=== PATIENT | male | born 1970 | race Caucasian/White ===

== ENCOUNTER → 2017-09-10 | Outpatient (CLI) | payer BC ==
[~2017-09-10] MED LIST: INDO25CA14 PO; LPR25 PO; PANT1TAB4 PO; THIA100T27 PO
== END | disposition home or self-care (01) ==
LOC: C.RDSM 10:55
PROVIDERS: ATTEND Family Medicine Sports Medicine
DX: M54.5 Low back pain (principal)

== ENCOUNTER 2023-12-23 11:58 | Inpatient (IN) ==
[2023-12-23 12:43] LABS: Basophils # (auto) 0.03 K/uL (0.00-0.20); Basophils % (auto) 0.2 %; Eosinophils # (auto) 0.01 K/uL (0.00-0.50); Eosinophils % (auto) 0.1 %; Hematocrit (blood only) 50.9 % (42.0-52.0); Hemoglobin 18.5 g/dl (14.0-18.0); Immature Granulocytes # (auto) 0.07 K/uL (0.01-0.20); Immature Granulocytes % (auto) 0.5 %; Lymphocytes % (auto) 4.7 %; Mean Corpuscular Hemoglobin 32.5 pg (25.0-34.0); Mean Corpuscular Hgb Conc 36.3 g/dL (32.0-36.0); Mean Corpuscular Volume 89.5 fL (80.0-100.0); Mean Platelet Volume 9.1 fL (9.4-12.4); Monocytes # (auto) 0.79 K/uL (0.11-0.59); Monocytes % (auto) 6.2 %; Neutrophils # (auto) 11.25 K/uL (1.40-6.50); Neutrophils % (auto) 88.3 %; Platelet Count 425 K/uL (130-400); RDW Coefficient of Variation 11.5 % (11.5-14.5); RDW Standard Deviation 37.3 fL (36.4-46.3); Red Blood Count 5.69 M/uL (4.70-6.10); White Blood Count 12.75 K/ul (4.8-10.8)
[2023-12-23 13:01] LABS: Anion Gap 8 (3-11); BUN Creatinine Ratio 12.9 (10-20); Blood Urea Nitrogen 12 mg/dl (6-23); Calcium 9.7 mg/dl (8.6-10.3); Carbon Dioxide 30 mmol/L (21-32); Chloride 96 mmol/L (98-107); Glucose 154 mg/dl (70-99(Fasting)); Potassium 4.5 mmol/L (3.5-5.1); Sodium 134 mmol/L (136-145)
[2023-12-23 13:04] LABS: Alanine Aminotransferase 10 U/L (7-52); Albumin Globulin Ratio 1.2 (0.9-2); Albumin Level 4.1 gm/dl (3.4-5.0); Alkaline Phosphatase 91 U/L (34-104); Aspartate Aminotransferase 13 U/L (13-39); Globulin 3.5 gm/dl (2.5-4.0); Total Protein 7.6 gm/dl (6.0-8.3)
[2023-12-23 13:24] LABS: Lipase 1126 U/L (11-82)
[2023-12-23] MEDS: FAMOTIDINE 20MG IV PUSH 20 MG/5 ML SYR IV STA (13:42)
[2023-12-23] MEDS: ONDANSETRON INJ 2 MG/ML 2 ML VIAL IV STA (13:42)
[2023-12-23] MEDS: MoRPHine SULFATE 10 MG/ML CARP/VIAL IV STA (13:42)
[2023-12-23] MEDS: SODIUM CHLORIDE 0.9% 1,000 ML IV ONE (13:43)
[2023-12-23] MEDS: OPTIRAY 320 100ml IV ONE (13:51)
[2023-12-23 14:04] LABS: Prothrombin Time 11.1 Seconds (9.0-12.0)
--- NOTE | 2023-12-23 14:05 | History & Physical Report ---
Date of Service December 23, 2023 Assessment & Plan (1) Pancreatitis: Plan: History of chronic pancreatitis secondary to alcohol use - Recent ultrasound 10/2023 showed multiple stones within the gallbladder, fatty liver disease, severe chronic pancreatitis - CT AP on admission showed acute on chronic pancreatitis, large nonobstructing calculi within major and accessory pancreatic ducts (follow up 3 months), cholelithiasis without ductal dilation - triglyceride level 12/16 = 74 - lipase 1126 - leukocytosis (WBC 12.75) with neutrophil predominance - lactate pending - NPO - may have water - IVF bolus NSS in ER -> transition to gentle resuscitation with LR - IV tylenol prn, IV morphine prn, zofran prn (2) Alcohol abuse: Plan: previous history of alcohol use, quit for about 4 weeks, resumed a couple weeks ago (~12-15? shots of liquor a day) last drink evening of 11/18 - Alcohol level negative on admission - IV thiamine 500 mg in the ER -> transition to 100 mg IV daily - 1G IV folate on admission - AWSS @ risk protocol - folate, thiamine, B12 with AM labs (3) Mesenteric venous thrombosis: Plan: no history of previous bleeding or VTE - CT AP on admission showed moderately narrowed SMV, favors partial thrombus - Heparinized at time of admission - consult to vascular (4) Hypertension: Plan: Elevated on admission (217/122) - Given 1 L bolus of fluids in ER, likely contributing to hypertension - continue home medications (5) Gout: Plan: recent flare-up 12/17 - prescribed prednisone taper - improved - continue final 2 days of prednisone taper, 10 mg p.o. (6) Cholelithiasis: Plan: - seen on recent ultrasound 10/22/2023 without obstruction - CT AP on admission showed cholelithiasis without ductal dilation - LFTs WNL on admission - Continue to trend LFTs daily (7) Fatty liver: Plan: seen on recent ultrasound 10/2023 - CMP showed no abnormalities with liver enzymes Plan Chronic stable diagnoses: HLD - continue statin Prediabetes - A1c 6.1%, no medical management at this time VTE ppx: heparinized Diet: NPO - may have water Code status: Full Dispo: pcu/tele Admission and Anticipated Discharge Date Admission Date: 12/23/23 History of Present Illness Chief Complaint: Abd pain Primary Care Provider: SYLVIA Urbina Patient is a 53-year-old male with past medical history of chronic pancreatitis, alcohol use, gout (recent steroid prescribed 12/17), hypertension, lipidemia, fatty liver disease, and prediabetes. He presents today due to abdominal pain. patient stated that his abdominal pain began Sunday in the evening and progressively has gotten worse since then, it is intermittent and 10 out of 10 at its worst. He has had episodes of this in the past and did not seek medical treatment Because it went away after few hours. He was hospitalized in 2016 for acute pancreatitis, he stated that was more severe than it currently is. he has been unable to eat much for the past few days due to pain, liquid diet at home. He also has a history of alcohol abuse. A few months ago he decided to quit, he went 4 weeks without any drinks. He did not have any signs or symptoms of withdrawal or seizures during this break. He slowly started to drink 1-2 drinks a day and now is back to having multiple drinks every evening with 3-4 shots in each drink. He is unable to give a quantity of exactly how much she is drinking today. He quit drinking Sunday due to the pain, his last drink was evening. He currently denies symptoms of withdrawal. No recent seizures. He endorses abdominal pain, currently well-controlled given patient just had morphine. Patient with hiccups on exam. Patient denies fever, chills, headache, dizziness, lightheadedness, vision changes, rhinorrhea, sore throat, cough, sputum production, dyspnea, dyspnea on exertion, chest pain, nausea, vomiting, diarrhea, constipation, dysuria, hematuria, edema, numbness, tingling. Patient's significant other updated at bedside. The patient was discussed with Dr. Moore at the time of the admission/consult. Allergies Allergy/AdvReac Type Severity Reaction Status Date / Time hydrocodone Allergy Verified 12/18/23 15:29 Home Medications Medication Instructions Recorded Confirmed Type thiamine HCl (vitamin B1) 100 mg 100 mg PO DAILY 12/09/18 12/23/23 History tablet aspirin 81 mg tablet,delayed 81 mg PO DAILY #30 tabs 10/26/21 12/23/23 Rx release sildenafil 50 mg tablet 50 mg PO DAILY PRN sexual activity 09/18/24 11/10/24 Rx #20 tabs irbesartan 300 mg tablet 300 mg PO DAILY #90 tabs 12/05/23 12/23/23 Rx metoprolol succinate 50 mg 50 mg PO DAILY #90 tabs 12/05/23 12/23/23 Rx tablet,extended release 24 hr prednisone 10 mg tablet See Rx Instructions PO DAILY #20 12/18/23 12/23/23 Rx tabs potassium chloride 20 mEq 20 meq PO UD 12/23/23 12/23/23 History tablet,extended release(part/cryst) Past Med/Surg History Problem List Mesenteric venous thrombosis Alcohol abuse Pancreatitis (2016) Cholelithiasis Fatty liver Chronic pancreatitis Prediabetes Gout Erectile dysfunction Anxiety Left ventricular hypertrophy Hyperlipidemia Hypertension Medical History Abnormal EKG Hypertensive urgency Olecranon bursitis Contusion of bone Pain of both elbows Surgical History History of arthroscopy of knee Family History Denies family history of Ovarian cancer Prostate cancer Breast cancer Lung cancer Colorectal cancer Social History Smoking Status: Never smoker Tobacco Type: Smokeless Tobacco (Dip or Chew) Do You Dip or Chew Tobacco: Yes; Hx Alcohol Use: No (NO longer drinking Alcohol (previous use: 1/2 handle hard liquor per day)) Hx Substance Use: No Preferred Language: [place] Communication Ability: Effective Visual Impairment: No Limitations Hearing Ability: Hard of Hearing Erp Pm Required: No Beliefs That Will Affect Care: None marital status: Single Current Living Situation: Alone current occupational status: employed current occupation: forester How many Children do You have: 3 How many Children do You have Comment: 2 daughters, 1 son Feels Safe at Home: Yes Childhood Exposure to Second-Hand Smoke: Yes Diet: regular caffeine: Yes (coffee) during the past year weight has: remained stable Dental Care, Regularly: No Physical Activity Frequency: Daily Physical Activity Frequency Comment: walking Seatbelt Use: always Sunscreen Use: Yes Review of Systems Review of Systems: see HPI Physical Exam Physical Exam: The patient is awake, alert and oriented 3, well developed and well nourished, normocephalic and atraumatic, in no acute distress. Non-toxic appearing. HEENT- EOMI, mucous membranes dry. Hearing grossly intact. Heart-normal S1 and S2. No murmurs, rubs or gallops. Lungs-clear bilaterally, no respiratory distress, no accessory muscle use. Abdomen-normal bowel sounds and soft. No ascites noted. Tenderness to palpation of RUQ and LUQ, no cullens or bauer's sign. Extremities- no clubbing, cyanosis, or edema. Rheumatologic-normal range of motion. Psychiatric-normal affect. Results & Data Results & Data Vital Signs (Past 12 Hours) Vital Signs Temp Pulse Pulse Resp BP BP Pulse Ox 12/23/23 14:01 110 H 16 217/122 H 95 12/23/23 12:06 36.4 C L 118 H 20 199/130 H 97 O2 Del Method 12/23/23 14:01 Room Air 12/23/23 12:06 Room Air Code Status & VTE Plan Code Status full VTE Prophylaxis Plan VTE Prophylaxis will be ordered: Yes Supervising Physician Co-Signing Physician Notes Patient seen and examined, chart reviewed, case discussed with Pinky Gutierrez PA-C and I agree with the assessment and plan as above except as otherwise noted Labs and images reviewed Patient is a 53-year-old male with a past medical history of hypertension, gout, alcohol use, fatty liver disease on EUS 10/2023, chronic pancreatitis with chronic calcific pancreatitis noted on EUS 10/2023 who presents with abdominal pain and was found to have recurrent acute on chronic pancreatitis in the setting of alcohol use. Acute on chronic pancreatitis CTA&P with moderate stranding and fluid adjacent to the uncinate process and pancreatic head extending into the mesentery. No fluid collection. Moderately narrowed superior mesenteric vein new from prior favoring partial thrombosis with patent portal veins Pancreatitis likely due to resuming alcohol in the last few weeks. Recommend remaining abstinent from alcohol LR x 1 due to poor p.o. intake and abdominal pain, will push orals as tolerated and reassess for need for IV fluids following each liter in setting of critical IV fluid shortage. Patient does have calcified gallstone within the gallbladder but does not show biliary ductal dilation or transaminitis suggestive of CBD stone as the cause of his pancreatitis. LFTs trended daily. Triglycerides were recently checked and within normal ranges 74 History of alcohol abuse - Abstinant from alcohol a for a few months, but started drinking again a few weeks ago. Previously with 10-12 beers Per day use and history of recurrent pancreatitis with hypertension - Currently 3 drinks per night with a few shots per drink. No ETOH since evening. No tremors, shakes, or sweating. No history of seizure. - E[facility] 10[facility]20[facility]: Normal esophagus. Normal stomach. Normal duodenum. Patient is around 3 days without alcohol and without withdrawal symptoms on admission. He reports that he has not had his usual alcohol withdrawal before and feels confident he will not have any withdrawal symptoms or need medicine; will place on RANDALL S protocol but defer Librium/gabapentin/phenobarb/Valium on admission. If he begins to show signs of withdrawal would recommend addition of Valium 5-10 mg every hour up to 3 doses for frontloaded protocol at that time. Resume thiamine/folic acid when able to tolerate p.o. Will give 1 dose of thiamine IV Mesenteric vein thrombosis Moderately narrowed superior mesenteric vein indicative of partial thrombosis with patent portal veins on CT Patient does not appear peritoneal, does have upper right and left quadrant pain likely from his concurrent pancreatitis but without rebound/involuntary guarding at time of admission Heparin GTT ordered and continued No evidence of bowel infarction on CT. Lactate ordered. surgery not indicated at time of admitting assessment Reviewed risks of anticoagulation extensively with patient at bedside, he is agreeable to heparin and likely DOAC on discharge. He denies history of bleeding, stomach ulcers, hematochezia/melena. He does report he had some dark stools many weeks ago but had no stomach ulcers on his endoscopy and has not had GI bleeding. Also reviewed the risk of alcohol intake while on a blood thinner both from risk of bleeding and from the anticoagulation itself and from the potential for alcohol to both worsen this and increase his likelihood of falling. Discussed rare but catastrophic nature of intracranial hemorrhage, and strongly recommended patient remain abstinent from alcohol. Agree with above PG Care Time/CCT Total # of Minutes Spent Total Time Spent with Patient: Total time spent is greater than 50% in coordination of care (as documented) at patient's floor/unit and/or counseling patient: Coding Level of Care Code 63017 INT INP/OBS CARE 3/75MIN Diagnoses Pancreatitis K85.90 Alcohol abuse F10.10 Mesenteric venous thrombosis K55.069 Hypertension I10 Gout M10.9 Cholelithiasis K80.20 Fatty liver K76.0
--- NOTE | 2023-12-23 14:14 | CT Scan Report ---
CT OF THE ABDOMEN AND PELVIS WITH CONTRAST CLINICAL HISTORY: etoh pancreatitis, abd pain COMPARISON STUDY: CT of the abdomen and pelvis September 14, 2023. TECHNIQUE: Following IV administration of 93 mL of Optiray, axial images of the abdomen and pelvis we re obtained from the lung bases to the proximal femurs. Images were reviewed in the axial, sagittal, and coronal planes. IV contrast was administered without complication. Automated exposure control wa s utilized for the study. A dose lowering technique was utilized adhering to the principles of ALARA . CT DOSE: 1548.51 mGy.cm FINDINGS: Lung bases are unremarkable. No pneumatosis, free air or portal venous gas is present. Ther e is a small calcified gallstone within the gallbladder. The gallbladder is not distended. There is n o pericholecystic infiltration. There is no biliary ductal dilatation. The spleen, adrenal glands and kidneys are unremarkable. Is no hydronephrosis. Pancreatic parenchymal calcifications are again note d with glandular atrophy. Pancreatic ductal dilatation is unchanged since CT of September 14, 2023. The m ain pancreatic duct measures 1.2 cm. Note is again made of large calculi within the main and accessor y pancreatic ducts, just proximal to the major and minor papilla. These calculi measure up to 2 cm. M oderate stranding and fluid adjacent to the uncinate process and pancreatic head extends into the mes entery. No well-defined peripancreatic fluid collection is present. There is no evidence for gland ne crosis. Of note, the superior mesenteric vein is attenuated, new since prior exam. The main, left and right portal veins are patent. Splenic vein is patent. There is no evidence for a bowel obstruction. A small amount of fluid within the pelvis is present. IMPRESSION: 1. Findings consistent with acute on chronic pancreatitis. Moderate stranding and fluid adjacent to t he uncinate process and pancreatic head extending into the mesentery. No peripancreatic fluid collect ion. 2. No change in pancreatic ductal dilatation likely related to large calculi within the major and acc essory pancreatic ducts. No underlying mass identified however a follow-up CT in 3 months is recommen ded. 3. Moderately narrowed superior mesenteric vein, a new finding since prior exam. This favors partial thrombosis. Patent portal veins. 4. Cholelithiasis. 5. No biliary ductal dilatation. ACT 112: Negative or not required by law. Electronically signed by: Josse Russell M.D. 12/23/2023 2:12 PM
--- NOTE | 2023-12-23 14:23 | Emergency Department Note ---
Impression & Plan Pancreatitis, Alcohol abuse, Chronic pancreatitis, Mesenteric venous thrombosis ED Provider Note NAME: ANAI VIDAL AGE: 53 SEX: M : 1970 ARRIVES VIA: Walk-In INFORMANT: Patient ED PROVIDER(S): Dimitri Ramirez MD CHIEF COMPLAINT: Abdominal pain PLAN: Disposition: Admit MEDICAL DECISION MAKING: The patient is a 53-year-old gentleman with a past medical history of alcohol dependence and recurrent pancreatitis related to his alcohol use who presents to the emergency department for evaluation of ongoing abdominal pain and associated nausea for the past several days which she is confident is his pancreatitis. He reports he has been drinking alcohol and understands this likely triggered the flare. He reports he will go weeks without drinking and does not feel he would withdrawal. He denies fevers, chills, cough, congestion. Of note, the patient did arrive to emergency department during time of high volume, acuity and prolonged emergency department waiting times. Critical pathways initiated from triage. On my evaluation, the patient is uncomfortable, agitated but no acute distress, afebrile and initially with heart in the 110s and blood pressure 190/130s in triage. He appears clinically dry. He has moderate mid to upper abdominal discomfort though will not allow full examination and palpation. Abdomen is soft. EKG without overt acute ischemia. WBC 12.7 K with neutrophilia but no left shift. H/H 18.5/50.9 similar to prior range values though increased from recent and suspect component of hemoconcentration given clinically dry appearance as well as platelets that are also concentrated at 425K. Chemistry without metabolic acidosis. LFTs are unremarkable. INR is 1.0, within normal limits. Lipase is elevated at 1100 and consistent with acute on chronic pancreatitis. Medical alcohol is undetectable. CT of the abdomen pelvis was ordered and is pending. However given the patient's acute on chronic pancreatitis with substantial symptoms and need for hydration and n.p.o. status he does agree with plan for admission for further management. Patient was treated with IV fluid hydration, IV thiamine, IV morphine as well as IV Ativan for component of possible withdrawal. AWSS ordered. Case was [place], [facility] [place], who will evaluate the patient for admission. CT of the abdomen pelvis was subsequently pleated and demonstrates evidence consistent with acute on chronic pancreatitis with stranding and fluid adjacent to the pancreatic head extending in the mesentery but no peripancreatic fluid collection. There is no change in pancreatic ductal dilatation suspected be related to large calculi within the major accessory pancreatic ducts. Description of moderately narrowed superior mesenteric vein is a new finding and favors partial thrombosis. Portal veins are patent. There is cholelithiasis without evidence of cholecystitis. There is no biliary ductal dilatation. Further management per admitting team. Triage Nursing notes reviewed and agree them. Prior/external medical records reviewed Vital Signs: reviewed Differential diagnosis: Appendicitis, testicular torsion, infections, diverticulitis, UTI, obstruction, mesenteric ischemia, aortic pathology, inflammatory bowel disease, renal colic, PUD, pancreatitis, biliary pathology, hernia, volvulus, constipation, as well as other pathologies. ER treatment provided: See below. Diagnostics interpreted by me: ECG: Sinus tachycardia, 104 bpm, no ectopy, no overt ST ovation or depression, QTc 46, QRS 76. Cardiac Monitoring: An order for continuous cardiac monitoring was placed and demonstrated Sinus tachycardia, 104 bpm, no ectopy. Laboratory studies: See below Imaging studies: See below Consultation(s): Case was discussed [place]. Moore, [facility] [place], who will evaluate the patient for admission. HPI: The patient is a 53-year-old gentleman with a past medical history of alcohol dependence and recurrent pancreatitis related to his alcohol use who presents to the emergency department for evaluation of ongoing abdominal pain and associated nausea for the past several days which she is confident is his pancreatitis. He reports he has been drinking alcohol and understands this likely triggered the flare. He reports he will go weeks without drinking and does not feel he would withdrawal. He denies fevers, chills, cough, congestion. ROS: See above HPI for pertinent positives & negatives. A total of 10 systems reviewed and were otherwise negative. VITALS:See Below PHYSICAL EXAMINATION: GENERAL: Awake, alert, uncomfortable-appearing, in no distress HENT: Normocephalic, atraumatic. Oropharynx with dry mucous membranes and otherwise unremarkable. EYES: Normal conjunctiva. Sclera non-icteric. NECK: Supple. No nuchal rigidity. FROM. No JVD. RESPIRATORY: Clear to auscultation. CARDIAC: Tachycardic rate, normal rhythm. Extremities warm and well perfused. Pulses equal. ABDOMEN: Soft, non-distended. Moderate mid-upper discomfort. MUSCULOSKELETAL: Chest examination reveals no tenderness. The back is symmetrical on inspection without obvious abnormality. There is no CVA tenderness to palpation. No joint edema. LOWER EXTREMITIES: Calves are equal size bilaterally and non-tender. No edema. No discoloration. NEURO: Irritable/agitated. No focal sensory or motor deficits noted. SKIN: No rash or jaundice noted. Dimitri Ramirez MD Past Med/Surg History Problem List (Updated 12/23/23 @ 21:10 by Dimitri Ramirez MD) Pancreatitis (Acute) Mesenteric venous thrombosis (Acute) Alcohol abuse (Acute) Pancreatitis (2016) Cholelithiasis Fatty liver Chronic pancreatitis (Acute) Prediabetes Gout Erectile dysfunction Anxiety Left ventricular hypertrophy Hyperlipidemia Hypertension Medical History Abnormal EKG Hypertensive urgency Olecranon bursitis Contusion of bone Pain of both elbows Surgical History History of arthroscopy of knee Family History Denies family history of Ovarian cancer Prostate cancer Breast cancer Lung cancer Colorectal cancer Social History Smoking Status: Never smoker Tobacco Type: Smokeless Tobacco (Dip or Chew) Second Hand Exposure: No; Do You Dip or Chew Tobacco: Yes; Tobacco Cessation Education Requested by Patient: No Hx Alcohol Use: Yes Alcohol type: hard liquor Hx Substance Use: No Preferred Language: Irish Communication Ability: Effective Visual Impairment: No Limitations Hearing Ability: Hard of Hearing Scallop Binder Required: No Beliefs That Will Affect Care: None marital status: Single Current Living Situation: Significant Other current occupational status: employed current occupation: forester How many Children do You have: 3 How many Children do You have Comment: 2 daughters, 1 son Other Information That Helps Us Care for You: No Feels Safe at Home: Yes Safety Concerns: Feels Safe At This Time Childhood Exposure to Second-Hand Smoke: Yes Diet: regular caffeine: Yes (coffee) during the past year weight has: remained stable Dental Care, Regularly: No Physical Activity Frequency: Daily Physical Activity Frequency Comment: walking Seatbelt Use: always Sunscreen Use: Yes Assistive Devices: None Allergies Allergies Allergy/AdvReac Type Severity Reaction Status Date / Time hydrocodone Allergy Verified 12/18/23 15:29 Home Meds Home Medications Medication Instructions Recorded Confirmed thiamine HCl (vitamin B1) 100 mg 100 mg PO DAILY 12/09/18 12/23/23 tablet potassium chloride 20 mEq 20 meq PO UD 12/23/23 12/23/23 tablet,extended release(part/cryst) Previous Rx's Medication Instructions Recorded aspirin 81 mg tablet,delayed 81 mg PO DAILY #30 tabs 10/26/21 release sildenafil 50 mg tablet 50 mg PO DAILY PRN sexual activity 10/31/23 #20 tabs irbesartan 300 mg tablet 300 mg PO DAILY #90 tabs 12/05/23 metoprolol succinate 50 mg 50 mg PO DAILY #90 tabs 12/05/23 tablet,extended release 24 hr prednisone 10 mg tablet See Rx Instructions PO DAILY #20 12/18/23 tabs Results & Data (ED) Vital Signs Vital Signs - 24 hr 12/23/23 12:06 12/23/23 14:01 12/23/23 14:22 Temperature 36.4 C L Temperature Source Temporal Artery Scan Pulse Rate 118 H 91 H Pulse Rate [Apical] 110 H Pulse Rhythm Regular Pulse Strength Normal Respiratory Rate 20 16 Respiratory Effort / Characteristics Non-Labored Spontaneous Non-Labored Spontaneous Respiratory Depth Normal Normal Respiratory Pattern Regular Regular Blood Pressure 199/130 H Blood Pressure [Left Arm] 217/122 H Blood Pressure Mean 153 Blood Pressure Mean [Left Arm] 153 Blood Pressure Position Sitting Pulse Oximetry 97 95 Oxygen Delivery Method Room Air Room Air Sepsis Recent Fever Within 48 Hours No Sepsis New/Unexplained Change in Mental Status No Sepsis Action Taken by Nursing No Action Required 12/23/23 14:52 Temperature Temperature Source Pulse Rate Pulse Rate [Apical] 124 H Pulse Rhythm Pulse Strength Respiratory Rate 19 Respiratory Effort / Characteristics Non-Labored Spontaneous Respiratory Depth Normal Respiratory Pattern Regular Blood Pressure Blood Pressure [Left Arm] 176/115 H Blood Pressure Mean Blood Pressure Mean [Left Arm] 135 Blood Pressure Position Pulse Oximetry 99 Oxygen Delivery Method Room Air Sepsis Recent Fever Within 48 Hours Sepsis New/Unexplained Change in Mental Status Sepsis Action Taken by Nursing Laboratory Data Attestation: I reviewed the patient's lab results. 12/23/23 12:29 12/23/23 12:29 Lab Results 12/23/23 12/23/23 Range/Units 12:25 12:29 WBC 12.75 H (4.8-10.8) K/ul RBC 5.69 (4.70-6.10) M/uL Hgb 18.5 H (14.0-18.0) g/dl Hct 50.9 (42.0-52.0) % MCV 89.5 (80.0-100.0) fL MCH 32.5 (25.0-34.0) pg MCHC 36.3 H (32.0-36.0) g/dL RDW Std Deviation 37.3 (36.4-46.3) fL RDW Coeff of Dwight 11.5 (11.5-14.5) % Plt Count 425 H (130-400) K/uL MPV 9.1 L (9.4-12.4) fL Immature Gran % (Auto) 0.5 % Neut % (Auto) 88.3 % Lymph % (Auto) 4.7 % [place] % (Auto) 6.2 % Eos % (Auto) 0.1 % Baso % (Auto) 0.2 % Neut # (Auto) 11.25 H (1.40-6.50) K/uL Lymph # (Auto) 0.60 L (1.20-3.40) K/uL [place] # (Auto) 0.79 H (0.11-0.59) K/uL Eos # (Auto) 0.01 (0.00-0.50) K/uL Baso # (Auto) 0.03 (0.00-0.20) K/uL Immature Gran # (Auto) 0.07 (0.01-0.20) K/uL PT 11.1 (9.0-12.0) Seconds INR 1.0 (0.9-1.1) Sodium 134 L (136-145) mmol/L Potassium 4.5 (3.5-5.1) mmol/L Chloride 96 L (98-107) mmol/L Carbon Dioxide 30 (21-32) mmol/L Anion Gap 8 (3-11) BUN 12 (6-23) mg/dl Creatinine 0.93 (0.6-1.4) mg/dl Est Cr Clr Drug Dosing Not Reportable eGFR 98.80 BUN/Creatinine Ratio 12.9 (10-20) Glucose 154 H (70-99(Fasting)) mg/dl Calcium 9.7 (8.6-10.3) mg/dl Total Bilirubin 1.0 (0.2-1.0) mg/dl AST 13 (13-39) U/L ALT 10 (7-52) U/L Alkaline Phosphatase 91 (34-104) U/L Total Protein 7.6 (6.0-8.3) gm/dl Albumin 4.1 (3.4-5.0) gm/dl Globulin 3.5 (2.5-4.0) gm/dl Albumin/Globulin Ratio 1.2 (0.9-2) Lipase 1126 H (11-82) U/L Ethyl Alcohol mg/dL < 10.0 (<10.0) mg/dl Administered Medications Heparin Sodium/Dextrose (Heparin Sodium/Dextrose) 25,000 units in 500 mls @ 32 mls/hr IV .[id number] [facility]; Protocol Stop: 01/22/24 15:44 Last Admin: 12/23/23 16:13 Dose: 1,600 units/hr, 32 mls/hr Documented By: FAYE Co-signed By: HOUSTON Lactated Ringer's (Lr) 1,000 mls @ 125 mls/hr IV .Q8H [facility] Stop: 12/24/23 02:13 Last Admin: 12/23/23 18:49 Dose: 125 mls/hr Documented By: LISSA Morphine Sulfate (Morphine Sulfate 2 Mg/Ml Carp) 2 mg IV Q4H PRN PRN Reason: Moderate Pain (Scale 4, 5, 6) Stop: 01/06/24 18:13 Last Admin: 12/23/23 18:50 Dose: 2 mg Documented By: LISSA Discontinued Medications Heparin Sodium (Porcine) (Heparin Sod (Porcine) 1000 Unit/Ml) 7,000 units IV NOW ONE Stop: 12/23/23 16:16 Last Admin: 12/23/23 16:11 Dose: 7,000 units Documented By: FAYE Co-signed By: HOUSTON Famotidine (Pepcid 20mg Iv Push) 20 mg in 5 mls @ 2.5 mls/min IV NOW STA Stop: 12/23/23 13:37 Last Admin: 12/23/23 13:42 Dose: 2.5 mls/min Documented By: NATALIIA Sodium Chloride (Nss) 1,000 mls @ 999 mls/hr IV .Q1H1M ONE Stop: 12/23/23 14:36 Last Infusion: 12/23/23 14:57 Dose: Infused Documented By: Admin: 12/23/23 13:43 Dose: 999 mls/hr Documented By: NATALIIA Thiamine HCl 500 mg/ Sodium (Chloride) 55 mls @ 210 mls/hr IV NOW STA Stop: 12/23/23 13:51 Last Infusion: 12/23/23 14:52 Dose: Infused Documented By: Admin: 12/23/23 14:31 Dose: 210 mls/hr Documented By: NATALIIA Pantoprazole Sodium (Protonix) 40 mg in 10 mls @ 5 mls/min IV NOW ONE Stop: 12/23/23 15:01 Last Admin: 12/23/23 15:32 Dose: 5 mls/min Documented By: FAYE Ioversol (Optiray 320 100ml) 93 ml IV ONCE ONE Stop: 12/23/23 13:52 Last Admin: 12/23/23 13:51 Dose: 93 ml Documented By: LARRY Lorazepam (Lorazepam 1 Mg/1 Ml Syr Ed Inj Use) 2 mg IV ONE STA Stop: 12/23/23 14:23 Last Admin: 12/23/23 14:31 Dose: 2 mg Documented By: NATALIIA Morphine Sulfate (Morphine Sulfate 10 Mg/Ml Carp/Vial) 6 mg IV NOW STA Stop: 12/23/23 13:37 Last Admin: 12/23/23 13:42 Dose: 6 mg Documented By: NATALIIA Ondansetron HCl (Ondansetron Inj 2 Mg/Ml 2 Ml Vial) 4 mg IV NOW STA Stop: 12/23/23 13:37 Last Admin: 12/23/23 13:42 Dose: 4 mg Documented By: NATALIIA Imaging Data Radiologist's Impression: Abdomen/Pelvis CT 12/23/23 13:36 CT OF THE ABDOMEN AND PELVIS WITH CONTRAST CLINICAL HISTORY: etoh pancreatitis, abd pain COMPARISON STUDY: CT of the abdomen and pelvis September 14, 2023. TECHNIQUE: Following IV administration of 93 mL of Optiray, axial images of the abdomen and pelvis were obtained from the lung bases to the proximal femurs. Images were reviewed in the axial, sagittal, and coronal planes. IV contrast was administered without complication. Automated exposure control was utilized for the study. A dose lowering technique was utilized adhering to the principles of ALARA. CT DOSE: 1548.51 mGy.cm FINDINGS: Lung bases are unremarkable. No pneumatosis, free air or portal venous gas is present. There is a small calcified gallstone within the gallbladder. The gallbladder is not distended. There is no pericholecystic infiltration. There is no biliary ductal dilatation. The spleen, adrenal glands and kidneys are unremarkable. Is no hydronephrosis. Pancreatic parenchymal calcifications are again noted with glandular atrophy. Pancreatic ductal dilatation is unchanged since CT of September 14, 2023. The main pancreatic duct measures 1.2 cm. Note is again made of large calculi within the main and accessory pancreatic ducts, just proximal to the major and minor papilla. These calculi measure up to 2 cm. Moderate stranding and fluid adjacent to the uncinate process and pancreatic head extends into the mesentery. No well-defined peripancreatic fluid collection is present. There is no evidence for gland necrosis. Of note, the superior mesenteric vein is attenuated, new since prior exam. The main, left and right portal veins are patent. Splenic vein is patent. There is no evidence for a bowel obstruction. A small amount of fluid within the pelvis is present. IMPRESSION: 1. Findings consistent with acute on chronic pancreatitis. Moderate stranding and fluid adjacent to the uncinate process and pancreatic head extending into the mesentery. No peripancreatic fluid collection. 2. No change in pancreatic ductal dilatation likely related to large calculi within the major and accessory pancreatic ducts. No underlying mass identified however a follow-up CT in 3 months is recommended. 3. Moderately narrowed superior mesenteric vein, a new finding since prior exam. This favors partial thrombosis. Patent portal veins. 4. Cholelithiasis. 5. No biliary ductal dilatation. ACT 112: Negative or not required by law. Electronically signed by: Josse Russell M.D. 12/23/2023 2:12 PM Discharge Plan Visit Data Chief Complaint: Abdominal Pain Stated Complaint: ABDOMINAL PAIN ED Provider: Dimitri Ramirez Discharge Problem: Pancreatitis, Alcohol abuse, Chronic pancreatitis, Mesenteric venous thrombosis Patient Disposition: Admitted As Inpatient Discharge Instructions Interventions: ED Discharge Assessment Last Done: 12/23/23 17:15 Discharge Problem: Pancreatitis Qualifiers: Chronicity: acute Pancreatitis type: alcohol induced Acute pancreatitis complication: unspecified Qualified Code(s): K85.20 - Alcohol induced acute pancreatitis without necrosis or infection Chronic pancreatitis Qualifiers: Pancreatitis type: alcohol induced Qualified Code(s): K86.0 - Alcohol-induced chronic pancreatitis
[2023-12-23] MEDS: LORazepam 1 MG/1 ML SYR ED Inj Use IV STA (14:31)
[2023-12-23] MEDS: THIAMINE HCL 500 MG in SODIUM CHLORIDE 0.9% 50 ML IV STA (14:31)
[2023-12-23] MEDS ORDERED: Heparin IV Adult Wt-Based Standard w/ INITIAL Bolus Protocol IV SCH (15:30)
[2023-12-23] MEDS: PANTOprazole 40 MG/10 ML SYR IV ONE (15:32)
[2023-12-23] MEDS: HEPARIN SOD (PORCINE) 1000 UNIT/ML IV ONE (16:11)
[2023-12-23] MEDS: HEPARIN SODIUM/DEXTROSE 25,000 UNITS/500 ML BAG IV SCH (16:13)
[2023-12-23] MEDS ORDERED: LORazepam 2 MG/1 ML VIAL IV PRN (18:14)
[2023-12-23] MEDS ORDERED: ACETAMINOPHEN 1,000 MG/100 ML VIAL IV PRN (18:14)
[2023-12-23] MEDS: LACTATED RINGER'S 1,000 ML IV SCH (18:49)
[2023-12-23] MEDS: MoRPHine SULFATE 2 MG/ML CARP IV PRN (18:50)
[2023-12-23] MEDS: FOLIC ACID 1 MG in SYRINGE 9.8 ML IV SCH (22:52)
[2023-12-23] MEDS: ONDANSETRON INJ 2 MG/ML 2 ML VIAL IV PRN (22:53)
[2023-12-23] MEDS: MoRPHine SULFATE 4 MG/ML 1 ML CARP\\VIAL IV PRN (22:53)
[2023-12-23 23:21] LABS: ANTI-Xa, UFH(UnfractionatedHep 0.32 IU/ml (0.3-0.7)
[2023-12-24] MEDS: METOPROLOL TARTRATE 1 MG/ML VIAL IV PRN (03:19)
[2023-12-24 06:33] LABS: Appearance Urine Clear (Clear); Bilirubin Urine Negative (Negative); Blood Urine Negative (Negative); Color Urine Yellow; Glucose Urine UA Negative (Negative); Ketones Urine 1+ (Negative); Leukocyte Esterase Urine Negative (Negative); Nitrite Urine Negative (Negative); Protein Urine Negative (Negative); Specific Gravity Urine 1.015 (1.000-1.030); Urobilinogen Urine Negative (Negative); pH Urine 6.5 (4.5-7.5)
[2023-12-24 06:49] LABS: Hematocrit (blood only) 42.8 % (42.0-52.0); Hemoglobin 15.3 g/dl (14.0-18.0); Mean Corpuscular Hemoglobin 31.9 pg (25.0-34.0); Mean Corpuscular Hgb Conc 35.7 g/dL (32.0-36.0); Mean Corpuscular Volume 89.2 fL (80.0-100.0); Mean Platelet Volume 9.8 fL (9.4-12.4); Platelet Count 327 K/uL (130-400); RDW Coefficient of Variation 11.6 % (11.5-14.5); RDW Standard Deviation 37.2 fL (36.4-46.3); White Blood Count 12.34 K/ul (4.8-10.8)
[2023-12-24 07:06] LABS: Albumin Globulin Ratio 1.3 (0.9-2); Albumin Level 3.3 gm/dl (3.4-5.0); BUN Creatinine Ratio 15.6 (10-20); Bilirubin,Total 0.7 mg/dl (0.2-1.0); Calcium 8.7 mg/dl (8.6-10.3); Creatinine Clr Calc Pharmacy 141.8 ml/min; Globulin 2.6 gm/dl (2.5-4.0); Total Protein 5.9 gm/dl (6.0-8.3)
--- NOTE | 2023-12-24 07:28 | Hospitalist Progress Note ---
Date of Service December 24, 2023 Assessment & Plan (1) Pancreatitis: Plan: History of chronic pancreatitis secondary to alcohol use. Acute on chronic pancreatitis - Clinically improved than on admission; pain score 2-3/ 10 with analgesics this AM. - Tolerated little portion of BF this AM. NPO stopped. - Recent ultrasound 10/2023 showed multiple stones within the gallbladder, fatty liver disease, severe chronic pancreatitis - CT AP on admission showed acute on chronic pancreatitis, large nonobstructing calculi within major and accessory pancreatic ducts (follow up 3 months), cholelithiasis without ductal dilation - Triglyceride level 12/16 = 74 - Lipase 1126 - Leukocytosis : 12.34< -------(WBC 12.75) with neutrophil predominance - Lactate: 1.3 - IV tylenol prn, IV morphine prn, zofran prn (2) Alcohol abuse: Plan: Previous history of alcohol use, quit for about 4 weeks, resumed a couple weeks ago last drink evening of 11/18 - Alcohol level negative on admission - IV thiamine 500 mg in the ER -> transition to 100 mg IV daily - 1G IV folate on admission - AWSS @ risk protocol : Scored 4 persistently; no need of Lorazepam so far. - Seems motivated to quit alcohol; given option of medicine support for abstinence. He will try on his own. -Might need support on Out-patient F/U (3) Mesenteric venous thrombosis: Plan: No history of previous bleeding or VTE - Under Heparin 19703 Units - CT AP on admission showed moderately narrowed SMV, favors partial thrombus - consult to vascular - Factor Xa: (4) Hypertension: Plan: - BP range: 167-188/ 110-128 on last 24 hour. - Under Losartan 100 mg Once daily. Metoprolol 50 mg Once daily. Home med : Irbesartan 300 mg daily stopped for now. (5) Gout: Plan: recent flare-up 12/17 - prescribed prednisone taper - improved - continue final 2 days of prednisone taper, 10 mg p.o. (6) Cholelithiasis: Plan: - seen on recent ultrasound 10/22/2023 without obstruction - CT AP on admission showed cholelithiasis without ductal dilation - LFTs WNL. (7) Fatty liver: Plan: seen on recent ultrasound 10/2023 - CMP showed no abnormalities with liver enzymes Plan Chronic stable diagnoses: HLD - continue statin Prediabetes - A1c 6.1%, no medical management at this time VTE ppx: heparinized Diet: NPO - may have water Code status: Full Dispo: pcu/tele Admission and Anticipated Discharge Date Admission Date: December 23, 2023 Supervising Physician Co-Signing Physician Notes Attending Physician Supervision Note: I independently interviewed and examined the patient and verified the josue history and physical, reviewed labs and image studies and agree with findings and care plan noted above. abdominal pain much improved. tolerated regular meal vitals noted nad heent nc at mmm breathing unlabored no accessory muscles good effort skin no rashes no pallor or icterus neuro no focal deficits. acute pancreatitis - improved. mesenteric vein partial thrombus - await vascular surgery input. continue iv heparin drip - transition to doac in am before d/c AUD severe - discussed naltrexone - interested in being on it. will have case mx provide D and A services info in am. Subjective Today morning he seems comfortable. States that he feels much better in terms of his pain. Pain : much better 2-3/10 under analgesics. Mentions he Slept well. He tried some breakfast and tolerated that well this AM. Review of Systems Review of Systems: As per HPI Physical Exam Physical Exam: Constitutional: Well appearing, No acute distress, PILCCOD: Negative HEENT: Atraumatic, Normocephalic, No conjunctival injection CVS: S1 S2 no murmur, Regular Rhythm, no LE edema Respiratory: BL equal air entry with NVBS. No rhonchi, wheezes, or crackles. No increased work of breathing GI: Soft, Mild tenderness all over his abdomen, Nondistended, Nontender, Normal Bowel sounds + MSK: No gross deformities noted Skin: Warm, Dry, No rashes Neuro: Alert, Oriented to TPP, No Focal deficit Psych: Mood and Affect congruent, Cooperative on exam Results & Data Results & Data Vital Signs (Past 12 Hours) Vital Signs Temp Pulse Pulse Resp BP BP Pulse Ox 12/24/23 05:05 69 167/110 H 12/24/23 03:59 37.2 C 69 20 167/110 H 97 12/24/23 00:03 37.0 C 75 19 185/124 H 96 12/23/23 21:11 36.6 C 91 H 20 172/113 H 92 12/23/23 20:49 O2 Del Method 12/24/23 05:05 11/11/24 03:59 Room Air 12/24/23 00:03 Room Air 12/23/23 21:11 Room Air 12/23/23 20:49 Room Air
[2023-12-24 07:50] LABS: Folate (Folic Acid),Ser orPlas 14.74 ng/ml (>5.38)
[2023-12-24] MEDS: METOPROLOL SUCC 50MG EXT REL TAB PO SCH (08:08)
[2023-12-24] MEDS: THIAMINE HCL 100 MG TAB PO SCH (08:09)
[2023-12-24] MEDS: MULTIVITAMIN TAB PO SCH (08:09)
[2023-12-24] MEDS: predniSONE 10 MG TABLET PO SCH (08:09)
[2023-12-24] MEDS: POTASSIUM CHLORIDE CRTAB 20 MEQ TABCR PO SCH (08:13)
[2023-12-24] MEDS: LOSARTAN POTASSIUM 50 MG TAB PO SCH (09:17)
[2023-12-24 11:31] LABS: ANTI-Xa, UFH(UnfractionatedHep 0.38 IU/ml (0.3-0.7)
[2023-12-25 02:40] VITALS: RESP 18
[2023-12-25 06:26] LABS: Hematocrit (blood only) 42.7 % (42.0-52.0); Mean Corpuscular Hemoglobin 32.3 pg (25.0-34.0); Mean Corpuscular Hgb Conc 35.1 g/dL (32.0-36.0); Mean Corpuscular Volume 91.8 fL (80.0-100.0); Mean Platelet Volume 9.6 fL (9.4-12.4); Platelet Count 284 K/uL (130-400); RDW Coefficient of Variation 11.8 % (11.5-14.5); RDW Standard Deviation 39.5 fL (36.4-46.3); Red Blood Count 4.65 M/uL (4.70-6.10); White Blood Count 11.35 K/ul (4.8-10.8)
[2023-12-25 06:31] LABS: Albumin Globulin Ratio 1.3 (0.9-2); Albumin Level 3.3 gm/dl (3.4-5.0); BUN Creatinine Ratio 10.7 (10-20); Bilirubin,Total 0.7 mg/dl (0.2-1.0); Calcium 8.8 mg/dl (8.6-10.3); Creatinine Clr Calc Pharmacy 106.9 ml/min; Globulin 2.5 gm/dl (2.5-4.0); Potassium 3.6 mmol/L (3.5-5.1); Total Protein 5.8 gm/dl (6.0-8.3)
[2023-12-25 06:32] LABS: ANTI-Xa, UFH(UnfractionatedHep 0.25 IU/ml (0.3-0.7)
--- NOTE | 2023-12-25 06:46 | Hospitalist Progress Note ---
Date of Service December 25, 2023 Assessment & Plan (1) Pancreatitis: Plan: History of chronic pancreatitis secondary to alcohol use. Acute on chronic pancreatitis - Clinically improved than on admission; pain score 0-1/ 10 with analgesics this AM. - Tolerated meals fair yesterday. He agrees its almost 50% nutritional goal compared to baseline at home - Recent ultrasound 10/2023 showed multiple stones within the gallbladder, fatty liver disease, severe chronic pancreatitis - CT AP on admission showed acute on chronic pancreatitis, large nonobstructing calculi within major and accessory pancreatic ducts (follow up 3 months), c holelithiasis without ductal dilation - Triglyceride level 12/16 = 74 - Lipase 1126 - Leukocytosis : 11.35----12.34< -------(WBC 12.75) with neutrophil predominance - Lactate: 1.3 -Seems stable from pancreatitis; can go home if Vascular don't have extra rec for Mesectic Vein Thrombosis. (2) Alcohol abuse: Plan: Previous history of alcohol use, quit for about 4 weeks, resumed a couple weeks ago last drink evening of 11/18 - Alcohol level negative on admission - IV thiamine 500 mg in the ER -> transition to 100 mg IV daily - 1G IV folate on admission - AWSS @ risk protocol : Scored 4 persistently; no need of Lorazepam so far. - Seems motivated to quit alcohol; positive about trying Naltrexone; case management aware. (3) Mesenteric venous thrombosis: Plan: No history of previous bleeding or VTE - Under Heparin 71169 Units - Anti Factor Xa: 0.25 - CT AP on admission showed moderately narrowed SMV, favors partial thrombus - Vascular Consult still Awaited. (4) Hypertension: Plan: - BP range: 165-178/ 95-109 on last 24 hour. - Under Losartan 100 mg Once daily. Metoprolol 50 mg Once daily. Home med : Irbesartan 300 mg daily on hold now. Equivalent to Losartan 100( will restart Irbe on DC) (5) Gout: Plan: recent flare-up 12/17 - prescribed prednisone taper - improved - Completed tapering prednisolone at hospital. (6) Cholelithiasis: Plan: - seen on recent ultrasound 10/22/2023 without obstruction - CT AP on admission showed cholelithiasis without ductal dilation - LFTs WNL. (7) Fatty liver: Plan: seen on recent ultrasound 10/2023 - CMP showed no abnormalities with liver enzymes Plan Chronic stable diagnoses: HLD - continue statin Prediabetes - A1c 6.1%, no medical management at this time VTE ppx: heparinized Diet: NPO - may have water Code status: Full Dispo: pcu/tele Admission and Anticipated Discharge Date Admission Date: December 23, 2023 Subjective Today morning he seems comfortable. States that he feels much better in terms of his pain. Pain : much better 0-1/10 under analgesics. Mentions he Slept fair. He tried some breakfast and tolerated this AM. He could not take full meals however he could tolerate at least 50%. He has not have bowel movement for 4 days now. He feels its because he was not eating anything as he was on NPO,and he does not feel extra discomfort because of constipation. Review of Systems Review of Systems: As per HPI Physical Exam Physical Exam: Constitutional: Well appearing, No acute distress, PILCCOD: Negative HEENT: Atraumatic, Normocephalic, No conjunctival injection CVS: S1 S2 no murmur, Regular Rhythm, no LE edema Respiratory: BL equal air entry with NVBS. No rhonchi, wheezes, or crackles. No increased work of breathing GI: Soft, Mild tenderness all over his abdomen, Nondistended, Nontender, Normal Bowel sounds + MSK: No gross deformities noted Skin: Warm, Dry, No rashes Neuro: Alert, Oriented to TPP, No Focal deficit Psych: Mood and Affect congruent, Cooperative on exam Results & Data Results & Data Vital Signs (Past 12 Hours) Vital Signs Temp Pulse Pulse Resp BP Pulse Ox O2 Del Method 12/25/23 02:38 36.6 C 71 18 178/88 H 96 High Flow Nasal Cannula 12/24/23 23:14 36.6 C 65 16 169/101 H 96 Room Air 12/24/23 21:43 69 12/24/23 20:00 Room Air 12/24/23 19:40 36.7 C 74 18 165/105 H 95 Room Air O2 Flow Rate 12/25/23 02:38 15 12/24/23 23:14 12/24/23 21:43 12/24/23 20:00 12/24/23 19:40 Resident Activity Tracking Resident Involvement: Resident Care Provided Care Provided: Adult [facility] Medicine
[2023-12-25 13:41] LABS: ANTI-Xa, UFH(UnfractionatedHep 0.32 IU/ml (0.3-0.7)
[2023-12-25 15:10] VITALS: BP 153/96; PULSE 77; TEMP 98.2; O2SAT 97
--- NOTE | 2023-12-25 15:15 | Consultation ---
Date of Consultation December 25, 2023 Assessment & Plan (1) Mesenteric venous thrombosis: Pt with mesenteric vein thrombosis, likely related to his acute pancreatitis. No indications for vascular surgical intervention. Recommend anticoagulation. Discussed with pt and family. Please call if needed. History of Present Illness Reason for Consultation: SMV thrombosis Attending Physician: Fozia Parks MD History of Present Illness 53 yo m with hx of HTN, ETOH use, fatty liver, hyperlipidemia, prediabetes, gout, anxiety, admitted with acute pancreatitis, seen in consultation today for SMV thrombosis noted on CT imaging. Pt denies any prior thrombotic events. States abd pain has resolved. Denies HOFFMANN, fever, chest pain, SOB, N/V, rest pain, claudication, other complaints. Allergies Allergy/AdvReac Type Severity Reaction Status Date / Time hydrocodone Allergy Verified 12/18/23 15:29 Home Medications Medication Instructions Recorded Confirmed Type thiamine HCl (vitamin B1) 100 mg 100 mg PO DAILY 12/09/18 12/23/23 History tablet aspirin 81 mg tablet,delayed 81 mg PO DAILY #30 tabs 10/26/21 12/23/23 Rx release sildenafil 50 mg tablet 50 mg PO DAILY PRN sexual activity 10/31/23 12/23/23 Rx #20 tabs irbesartan 300 mg tablet 300 mg PO DAILY #90 tabs 12/05/23 12/23/23 Rx metoprolol succinate 50 mg 50 mg PO DAILY #90 tabs 12/05/23 12/23/23 Rx tablet,extended release 24 hr prednisone 10 mg tablet See Rx Instructions PO DAILY #20 12/18/23 12/23/23 Rx tabs potassium chloride 20 mEq 20 meq PO UD 12/23/23 12/23/23 History tablet,extended release(part/cryst) Patient History Medical History Abnormal EKG Hypertensive urgency Olecranon bursitis Contusion of bone Pain of both elbows Surgical History History of arthroscopy of knee Family History Denies family history of Ovarian cancer Prostate cancer Breast cancer Lung cancer Colorectal cancer Social History (Reviewed 12/25/23 @ 15:13 by JARED Romero Smoking Status: Never smoker Tobacco Type: Smokeless Tobacco (Dip or Chew) Second Hand Exposure: No; Do You Dip or Chew Tobacco: Yes; Tobacco Cessation Education Requested by Patient: No Hx Alcohol Use: Yes Alcohol type: hard liquor Hx Substance Use: No Preferred Language: Occitan Communication Ability: Effective Visual Impairment: No Limitations Hearing Ability: Hard of Hearing Marine Farmer Required: No Beliefs That Will Affect Care: None marital status: Single Current Living Situation: Significant Other current occupational status: employed current occupation: forester How many Children do You have: 3 How many Children do You have Comment: 2 daughters, 1 son Other Information That Helps Us Care for You: No Feels Safe at Home: Yes Safety Concerns: Feels Safe At This Time Childhood Exposure to Second-Hand Smoke: Yes Diet: regular caffeine: Yes (coffee) during the past year weight has: remained stable Dental Care, Regularly: No Physical Activity Frequency: Daily Physical Activity Frequency Comment: walking Seatbelt Use: always Sunscreen Use: Yes Assistive Devices: None Review of Systems Review of Systems: All systems reviewed & are unremarkable except as noted in HPI & below Physical Exam Constitutional: WD/WN, vitals as above cooperative and comfortable; not in distress Neck: trachea midline Respiratory: normal respiratory effort, lungs clear to auscultation Auscultation: + diminished lung sounds Cardiovascular: Rate/Rhythm: regular rate and regular rhythm Vessels: normal peripheral pulses, posterior tibial pulses present, dorsalis pedis pulses present and radial pulses present Extremities: normal capillary refill; no edema Gastrointestinal (Abdomen): Inspection/Auscultation: abdomen normal to inspection and normal bowel sounds Percussion/Palpation: abdomen soft; abdomen nontender Musculoskeletal: no cyanosis or clubbing, extremities motor strength 5/5 Skin: no rashes, warm and dry Neurologic: moves all extremities and awake; no focal motor deficits and not confused Psychiatric: A+Ox3, euthymic affect Results & Data Vital Signs (Past 12 Hours) Vital Signs Temp Pulse Pulse Resp BP Pulse Ox O2 Del Method 12/25/23 15:10 36.8 C 77 18 153/96 H 97 Room Air 12/25/23 14:50 73 12/25/23 11:29 36.4 C L 79 18 178/92 H 95 Room Air 12/25/23 07:46 36.8 C 74 18 159/98 H 96 Room Air 12/25/23 07:21 83
--- NOTE | 2023-12-25 16:22 | Discharge Summary ---
Date of Service December 25, 2023 Admission HPI Per Admitting Provider Patient is a 53-year-old male with past medical history of chronic pancreatitis, alcohol use, gout (recent steroid prescribed 12/17), hypertension, lipidemia, fatty liver disease, and prediabetes. He presents today due to abdominal pain. patient stated that his abdominal pain began Sunday in the evening and progressively has gotten worse since then, it is intermittent and 10 out of 10 at its worst. He has had episodes of this in the past and did not seek medical treatment Because it went away after few hours. He was hospitalized in 2016 for acute pancreatitis, he stated that was more severe than it currently is. he has been unable to eat much for the past few days due to pain, liquid diet at home. He also has a history of alcohol abuse. A few months ago he decided to quit, he went 4 weeks without any drinks. He did not have any signs or symptoms of withdrawal or seizures during this break. He slowly started to drink 1-2 drinks a day and now is back to having multiple drinks every evening with 3-4 shots in each drink. He is unable to give a quantity of exactly how much she is drinking today. He quit drinking Sunday due to the pain, his last drink was evening. He currently denies symptoms of withdrawal. No recent seizures. He endorses abdominal pain, currently well-controlled given patient just had morphine. Patient with hiccups on exam. Patient denies fever, chills, headache, dizziness, lightheadedness, vision changes, rhinorrhea, sore throat, cough, sputum production, dyspnea, dyspnea on exertion, chest pain, nausea, vomiting, diarrhea, constipation, dysuria, hematuria, edema, numbness, tingling. Patient's significant other updated at bedside. The patient was discussed with Dr. Moore at the time of the admission/consult. Admission Exam Per Admitting Provider The patient is awake, alert and oriented 3, well developed and well nourished, normocephalic and atraumatic, in no acute distress. Non-toxic appearing. HEENT- EOMI, mucous membranes dry. Hearing grossly intact. Heart-normal S1 and S2. No murmurs, rubs or gallops. Lungs-clear bilaterally, no respiratory distress, no accessory muscle use. Abdomen-normal bowel sounds and soft. No ascites noted. Tenderness to palpation of RUQ and LUQ, no cullens or bauer's sign. Extremities- no clubbing, cyanosis, or edema. Rheumatologic-normal range of motion. Psychiatric-normal affect Principal Diagnosis Acute on chronic Pancreatitis Mesenteric Vein Thrombosis Discharge Exam Constitutional: Well appearing, No acute distress, PILCCOD: Negative HEENT: Atraumatic, Normocephalic, No conjunctival injection CVS: S1 S2 no murmur, Regular Rhythm, no LE edema Respiratory: BL equal air entry with NVBS. No rhonchi, wheezes, or crackles. No increased work of breathing GI: Soft, Mild tenderness all over his abdomen, Nondistended, Nontender, Normal Bowel sounds + MSK: No gross deformities noted Skin: Warm, Dry, No rashes Neuro: Alert, Oriented to TPP, No Focal deficit Psych: Mood and Affect congruent, Cooperative on exam Discharge Data Allergies Allergy/AdvReac Type Severity Reaction Status Date / Time hydrocodone Allergy Verified 12/18/23 15:29 Consultations 12/23/23 14:22 ED Decision to Admit Stat 12/23/23 15:33 Consult Vascular Surgery Routine Ordered Studies 12/23/23 13:36 CT abd pelvis IV con only Stat Hospital Course (1) Pancreatitis: (2) Mesenteric venous thrombosis: (3) Alcohol abuse: (4) Cholelithiasis: (5) Hypertension: #Acute on chronic pancreatitis - likely alcohol induced. - Presented with Acute abdominal pain, treated for acute pancreatitis - Clinically improved than on admission; pain score 0-1/ 10 with analgesics this AM. - Tolerated meals fair today #Mesenteric venous thrombosis: Plan: No history of VTE -Managed with IV heparin on admission -Vascular Consult: Recommend Oral Anticoagulant on discharge; No surgical intervention needed. - Eliquis 5 mg BID PO for 6 months recommended on discharge. - F/U with PCP #Alcohol abuse: Plan: Previous history of alcohol use, quit for about 4 weeks, resumed a couple weeks ago last drink evening of 11/18 - No Alcohol withdrawal symptom until hospital stay - Discuss with PCP on F/U about starting Naltrexone. Patient is positive about this. #Cholelithiasis: Plan: - seen on recent ultrasound 10/22/2023 without obstruction - CT AP on admission showed cholelithiasis without ductal dilation - LFTs WNL. Total Time Total Time Spent Total Time Spent (In Minutes): See Attending's attestation Discharge Plan Discharge Items Patient Disposition: Home - Self-Care Reason For Visit: PANCREATITIS, SMV THROMBOSIS, ALC WITHDRAWAL Discharge Diagnosis: Acute on chronic pancreatitis Mesenteric Vein Thrombosis Activity: Resume your previous activity Non-emergency contact: Primary Care Provider and Mechanical Systems Designer Call non-emergency contact if: your symptoms worsen, your pain is not controlled and your temperature is above 101.5 Follow-up/Referrals: Dajuan Mak CRNP [Primary Care Provider] - Diet: Regular Addtl Attending Provider Instructions: You were admitted to the hospital for pancreatitis and blood clot in one of the intraabdominal veins. You were treated conservatively for pancreatitis and with Heparin for Vein clot. A discharge summary will be sent to your primary care physician to ensure cont inuity of care. Please bring this discharge summary with you to your next office appointment so that your provider can review it at that time. Follow-up appointments: Make a follow-up appointment with your PCP within the next week. It is very important that you follow up with them shortly after discharge from the hospital. Keep all your follow-up appointments as already scheduled. If you cannot make an appointment, notify your provider. Medications: Your medication list has been reviewed and reconciled upon discharge to ensure accuracy and continuity of care. An updated list of all your medications is included with your hospital discharge paperwork. Please review this list closely, and make note of any changes. We sent a new medication called in Elliquis to your pharmacy. Take Elliquis 5 mg 1 tab twice daily for 6 months. Then f/u with PCP. If you have any issues filling these prescriptions, please call [phone] and ask to leave a message for Dr. Ebony Hamm. Take your medications as instructed; do not skip a dose of your medicines. Make sure all of your doctors know every medicine you are taking (including uema-tpf-zelioys medicines, vitamins, and supplements). Call your primary care provider before taking any new medicines (including over- the-counter medicines, vitamins, and supplements), because some of these may interact with your current medications, or may make your symptoms worse. Tell your primary care provider if you cannot afford your medications. CONTACT YOUR PRIMARY CARE PROVIDER if you experience any of the following: Worsening of symptoms Fever, chills, or fatigue Difficulty following your treatment plan, or difficulty taking medications CALL 911 OR GO TO THE EMERGENCY DEPARTMENT if you experience any of the following: Sudden, severe abdominal pain or nausea/vomiting Severe chest pain, or chest pain that radiates (moves) to your jaw or arm Sudden, severe shortness of breath or difficulty breathing Thank you for allowing us to participate in your care. Pending Studies at Discharge: No Stand-Alone Forms: My [facility], Smoking Cessation Medications and DC Order Prescriptions: New apixaban 5 mg tablet 5 mg PO Q12H 180 Days Qty: 360 0RF Continued sildenafil 50 mg tablet 50 mg PO DAILY PRN (Reason: sexual activity) Qty: 20 3RF Rx Instructions: administer 30 minutes to 4 hours before activity thiamine HCl (vitamin B1) 100 mg tablet 100 mg PO DAILY Rx Instructions: otc unable to verify aspirin 81 mg tablet,delayed release (DR/EC) 81 mg PO DAILY Qty: 30 2RF Rx Instructions: otc unable to verify metoprolol succinate 50 mg tablet extended release 24 hr 50 mg PO DAILY Qty: 90 1RF irbesartan 300 mg tablet 300 mg PO DAILY Qty: 90 1RF prednisone 10 mg tablet See Rx Instructions PO DAILY Qty: 20 0RF Rx Instructions: orally daily; 40 mg x3 days, 20 mg x3 days, 10 mg x2 days potassium chloride 20 mEq tablet,ER particles/crystals 20 meq PO UD Rx Instructions: 20 mg po daily. no fill history available/otc Discharge Orders: Discharge Order (Routine); Ordered 12/25/23 Ordered By: Ebony Mariano/Other Patient Handouts: Alcohol Addiction, Addiction: Getting Help, Addiction Tx Options, Hypertension Dc Admission Data Admit Date/Time: 12/23/23 15:17 Attending Provider: Fozia Parks Admit Provider: Tunde Moore Primary Care Provider: Dajuan Mak. Other Providers: Tunde Moore; Andrea Cali Other Interventions: Discharge Summary Assessment (RN) Last Done: 12/25/23 16:23 Supervising Physician Co-Signing Physician Notes Attending Physician Supervision Note: I independently interviewed and examined the patient and verified the josue history and physical, reviewed labs and image studies and agree with findings and care plan noted above. abdominal pain improved. tolerated regular meal vitals noted nad heent nc at mmm breathing unlabored no accessory muscles good effort skin no rashes no pallor or icterus neuro no focal deficits. Presented with abdominal pain. Treated for acute alcohol pancreatitis - tolerated diet on discharge. mesenteric vein partial thrombus - kept on IV heparin drip. no surgical input required. transitioned to eliquis on discharge - to continue for 6mths. AUD severe - discussed naltrexone - interested in being on it. to further discuss with PCP. Resident Activity Tracking Resident Involvement: Resident Care Provided Care Provided: Adult Hospital Medicine
--- NOTE | 2023-12-26 09:46 | Electrocardiogram Report ---
Test Reason : Blood Pressure : */* mmHG Vent. Rate : 104 BPM Atrial Rate : 104 BPM P-R Int : 146 ms QRS Dur : 76 ms QT Int : 332 ms P-R-T Axes : 63 -36 41 degrees QTcB Int : 436 ms Sinus tachycardia Left axis deviation Anterior infarct (cited on or before 14-Sep-2023) Abnormal ECG When compared with ECG of 14-Sep-2023 13:14, Prior tracing probably has lead reversal Confirmed by Yoel Gleason ([id number]) on 12/26/2023 9:46:17 AM Referred By: NO PCP Confirmed By: Yoel Gleason
== END 2023-12-25 16:51 | disposition home or self-care (01) | DRG 438 ==
LOC: ED 11:58 → SUATTDRO 15:17 → 2E 15:17
DX: E78.5 Hyperlipidemia, unspecified; K55.069 Acute infarction of intestine, part and extent unspecified; Y90.0 Blood alcohol level of less than 20 mg/100 ml; F17.220 Nicotine dependence, chewing tobacco, uncomplicated; Z88.5 Allergy status to narcotic agent; K86.0 Alcohol-induced chronic pancreatitis; M10.9 Gout, unspecified; Z79.82 Long term (current) use of aspirin; K80.20 Calculus of gallbladder without cholecystitis without obstruction; F10.10 Alcohol abuse, uncomplicated; R73.03 Prediabetes; K86.89 Other specified diseases of pancreas; I10 Essential (primary) hypertension; Z79.899 Other long term (current) drug therapy; K85.20 Alcohol induced acute pancreatitis without necrosis or infection; F41.9 Anxiety disorder, unspecified

== ENCOUNTER 2024-10-07 04:08 | Inpatient (IN) ==
--- NOTE | 2024-10-07 04:33 | Emergency Department Note ---
Impression & Plan Pancreatitis Admit to the [facility]ist ED Provider Note NAME: ANIA VIDAL AGE: 54 SEX: Male INFORMANT: Patient ED PROVIDER(S): Lisy Sesay DO CHIEF COMPLAINT: epigastric abdominal pain PLAN: Disposition: Admit to the [facility] MEDICAL DECISION MAKING: this is a 54-year-old male patient with a history of pancreatitis who presents to the emergency department with severe epigastric abdominal pain that started around midnight tonight. Patient describes his last alcoholic drink was approximately 30-36 hours ago. 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 He remained on this for 3 months but then stopped. Patient presents with sudden onset tonight of epigastric pain. Pain was moderately controlled with IV morphine. Laboratory studies revealed no leukocytosis or anemia. Lipase was elevated at 137. Glucose was at 152. Patient went for CT scan of the abdomen/pelvis which confirmed fat stranding about the pancreas consistent with acute on chronic pancreatitis. [facility] Triage Nursing notes: reviewed and agree With them. Vital Signs: reviewed and remarkable for hypertension Chronic Medical/Social Conditions affecting care: occasional alcohol use; history of previous episodes of pancreatitis Prior/ Outside/ External records reviewed: I did review admission notes from December 2023 Differential Diagnosis: pancreatitis, ulcerative disease, perforated viscus, recurrent mesenteric venous thrombosis Diagnostics, independently interpreted by me: ECG: normal sinus rhythm at a rate of [address] segment elevation or signs of ischemia. There is no ectopy. Cardiac Monitoring: Normal sinus rhythm at 70 Imaging studies: CT scan of the abdomen/pelvis: As per [facility] HPI: 54 year old Male arrives for evaluation of epigastric abdominal pain. Patient's pain began suddenly around midnight. He has had pancreatitis before and believes that is what is happening now. Patient has not had any alcohol in more than 24 hours. He does describe some associated nausea but no vomiting.. PAST MEDICAL HISTORY: See Below, PAST SURGICAL HISTORY: See Below, SOCIAL HISTORY: See Below, HOME MEDICATIONS: see list ALLERGIES: see list VITALS: See Below PHYSICAL EXAMINATION: HEENT: Head - normocephalic and atraumatic. Pupils are equal, round, and reactive to light. Extraocular eye muscles are intact, and sclera are anicteric. Nose - moist nasal mucosa without discharge. Mouth - moist buccal mucosa. Oropharynx is nonerythematous and there is no tonsillar exudate or edema noted. Neck: Supple; no cervical lymphadenopathy noted Heart: Regular rate and rhythm. There is a normal S1 and S2 with no murmurs, clicks, or gallops appreciated. Lungs: Clear to auscultation bilaterally with no wheezes, rales, or rhonchi. Abdomen: Soft, moderately tender to palpation in the epigastrium and about the umbilicus. There are no palpable pulsatile masses or hepatosplenomegaly. There is moderate rebound noted. There is slight guarding. Extremities: No evidence of cyanosis, clubbing, or edema. There are easily palpable peripheral pulses. Skin: warm and dry with good turgor and no rashes. 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 A complete history and physical was performed. An order was placed for continuous cardiac monitoring. The patient was in a normal sinus rhythm at a rate of 70. IV lock was initiated and labs were drawn as above. The patient was medicated with IV Zofran and IV morphine for the significant pain he experienced. He went for CT scan of the abdomen/pelvis to further evaluate for pancreatitis. Upon returning from radiology, the patient continued to complain of pain rating his pain as a 9/10. He was given another dose of IV morphine which gave him moderate relief of his discomfort. Patient was kept n.p.o. and placed on normal saline drip. The patient will be evaluated by the [facility]ist. Past Med/Surg History Problem List (Updated 10/07/24 @ 19:16 by Lisy Sesay DO) Pancreatitis (Acute) Pancreatic cyst Obstructive sleep apnea syndrome Poorly-controlled hypertension Pancreatic ductal abnormality Resistant hypertension Pancreatitis (Acute) Mesenteric venous thrombosis (Acute) Alcohol abuse (Acute) Pancreatitis (2016) Cholelithiasis Fatty liver Chronic pancreatitis (Acute) Prediabetes Gout Erectile dysfunction Anxiety Left ventricular hypertrophy Hyperlipidemia Hypertension Medical History Abnormal EKG Hypertensive urgency Olecranon bursitis Contusion of bone Pain of both elbows Surgical History History of arthroscopy of knee Family History Denies family history of Ovarian cancer Prostate cancer Breast cancer Lung cancer Colorectal cancer Social History Smoking Status: Former smoker Tobacco Type: Smokeless Tobacco (Dip or Chew) Smoking End Date: 30 years ago; Second Hand Exposure: No; Do You Dip or Chew Tobacco: Yes; Hx Alcohol Use: Yes Alcohol type: beer Hx Substance Use: Yes Preferred Language: Botswanan Communication Ability: Effective Visual Impairment: No Limitations Hearing Ability: Hard of Hearing Predatory Game Hunter Required: No Beliefs That Will Affect Care: None marital status: Single Current Living Situation: Alone current occupational status: employed current occupation: forester How many Children do You have: 3 How many Children do You have Comment: 2 daughters, 1 son Feels Safe at Home: Yes Safety Concerns: Feels Safe At This Time Childhood Exposure to Second-Hand Smoke: Yes Diet: regular caffeine: Yes (coffee) during the past year weight has: remained stable Dental Care, Regularly: No Physical Activity Frequency: Daily Physical Activity Frequency Comment: walking Seatbelt Use: always Sunscreen Use: Yes Assistive Devices: None Allergies Allergies Allergy/AdvReac Type Severity Reaction Status Date / Time hydrocodone Allergy Verified 10/07/24 08:22 Home Meds Home Medications Medication Instructions Recorded Confirmed thiamine HCl (vitamin B1) 100 mg 100 mg PO QDL 12/09/18 10/07/24 tablet hydrochlorothiazide 25 mg tablet 25 mg PO QDL 10/07/24 10/07/24 irbesartan 300 mg tablet 300 mg PO QDL 10/07/24 10/07/24 metoprolol succinate 50 mg 50 mg PO QDL 10/07/24 10/07/24 tablet,extended release 24 hr potassium citrate 99 mg capsule 99 mg PO QDL 10/07/24 10/07/24 Previous Rx's Medication Instructions Recorded amlodipine 5 mg tablet 5 mg PO HS #90 tabs 05/19/24 atorvastatin 20 mg tablet 20 mg PO QPM #90 tabs 05/20/24 sildenafil 50 mg tablet 50 mg PO DAILY PRN sexual activity 05/23/24 #20 tabs cyclobenzaprine 10 mg tablet 10 mg PO TID PRN muscle spasm #20 09/18/24 tabs Results & Data (ED) Vital Signs Vital Signs - 24 hr 10/07/24 04:08 10/07/24 04:11 10/07/24 04:18 Temperature 36.5 C Temperature Source Temporal Artery Scan Pulse Rate 78 Respiratory Rate 18 Respiratory Effort / Characteristics Non-Labored Non-Labored Spontaneous Respiratory Depth Normal Normal Respiratory Pattern Regular Blood Pressure 162/101 H Blood Pressure Mean 121 Pulse Oximetry 98 Oxygen Delivery Method Room Air Room Air Sepsis Recent Fever Within 48 Hours No Sepsis New/Unexplained Change in Mental Status N/A Sepsis Action Taken by Nursing No Action Required 10/07/24 05:20 10/07/24 05:54 10/07/24 06:00 Temperature Temperature Source Pulse Rate 70 78 68 Respiratory Rate 19 15 Respiratory Effort / Characteristics Respiratory Depth Respiratory Pattern Blood Pressure 169/102 H 130/76 Blood Pressure Mean 124 94 Pulse Oximetry 99 97 Oxygen Delivery Method Sepsis Recent Fever Within 48 Hours Sepsis New/Unexplained Change in Mental Status Sepsis Action Taken by Nursing 10/07/24 06:39 Temperature Temperature Source Pulse Rate 72 Respiratory Rate 12 Respiratory Effort / Characteristics Respiratory Depth Respiratory Pattern Blood Pressure 158/84 H Blood Pressure Mean 108 Pulse Oximetry 98 Oxygen Delivery Method Room Air Sepsis Recent Fever Within 48 Hours Sepsis New/Unexplained Change in Mental Status Sepsis Action Taken by Nursing Laboratory Data 10/07/24 04:18 10/07/24 07:22 Lab Results 10/07/24 10/07/24 Range/Units 04:18 05:55 WBC 6.36 (4.8-10.8) K/ul RBC 4.79 (4.70-6.10) M/uL Hgb 16.2 (14.0-18.0) g/dl Hct 43.7 (42.0-52.0) % MCV 91.2 (80.0-100.0) fL MCH 33.8 (25.0-34.0) pg MCHC 37.1 H (32.0-36.0) g/dL RDW Std Deviation 37.7 (36.4-46.3) fL RDW Coeff of Dwight 11.2 L (11.5-14.5) % Plt Count 179 (130-400) K/uL MPV 9.9 (9.4-12.4) fL Immature Gran % (Auto) 0.5 % Neut % (Auto) 74.1 % Lymph % (Auto) 16.0 % Hendry % (Auto) 8.2 % Eos % (Auto) 0.6 % Baso % (Auto) 0.6 % Neut # (Auto) 4.71 (1.40-6.50) K/uL Lymph # (Auto) 1.02 L (1.20-3.40) K/uL Hendry # (Auto) 0.52 (0.11-0.59) K/uL Eos # (Auto) 0.04 (0.00-0.50) K/uL Baso # (Auto) 0.04 (0.00-0.20) K/uL Immature Gran # (Auto) 0.03 (0.01-0.20) K/uL Sodium 134 L (136-145) mmol/L Potassium TNP TNP Chloride 98 (98-107) mmol/L Carbon Dioxide 27 (21-32) mmol/L Anion Gap 9 (3-11) BUN 10 (6-23) mg/dl Creatinine 0.99 (0.6-1.4) mg/dl Est Cr Clr Drug Dosing 122.7 ml/min eGFR 91.09 BUN/Creatinine Ratio 10.1 (10-20) Glucose 152 H (70-99(Fasting)) mg/dl Calcium 9.4 (8.6-10.3) mg/dl Total Bilirubin 0.4 (0.2-1.0) mg/dl AST TNP TNP ALT 22 (7-52) U/L Alkaline Phosphatase 92 (34-104) U/L Total Protein 7.2 (6.0-8.3) gm/dl Albumin 4.0 (3.4-5.0) gm/dl Globulin 3.2 (2.5-4.0) gm/dl Albumin/Globulin Ratio 1.3 (0.9-2) Lipase 137 H (11-82) U/L Administered Medications Enoxaparin Sodium (Enoxaparin Inj 40 Mg/0.4 Ml Syr) 40 mg SQ DAILY DENNIS Stop: 11/06/24 09:59 Last Admin: 10/07/24 10:04 Dose: Not Given Documented By: [facility] [place] Lactated Ringer's (Lr) 1,000 mls @ 125 mls/hr IV .Q8H DENNIS Stop: 10/08/24 01:13 Last Admin: 10/07/24 10:01 Dose: 125 mls/hr Documented By: [facility] [place] Metoprolol Succinate (Metoprolol Succ 50mg Ext Rel Tab) 50 mg PO DAILY DENNIS Stop: 11/06/24 09:29 Last Admin: 10/07/24 10:00 Dose: 50 mg Documented By: CHARO Morphine Sulfate (Morphine Sulfate 4 Mg/Ml 1 Ml Carp\Vial) 4 mg IV Q4 PRN PRN Reason: Severe Pain (Scale 7, 8, 9,10) Stop: 10/21/24 09:13 Last Admin: 10/07/24 14:21 Dose: 4 mg Documented By: [facility] [place] Thiamine HCl (Thiamine Hcl 100 Mg Tab) 100 mg PO QAM DENNIS Stop: 11/06/24 09:29 Last Admin: 10/07/24 10:00 Dose: 100 mg Documented By: [facility] [place] Discontinued Medications Sodium Chloride (Nss) 500 mls @ 125 mls/hr IV .Q4H DENNIS Stop: 10/07/24 10:29 Last Infusion: 10/07/24 10:00 Dose: Infused Documented By: [facility] [place] Admin: 10/07/24 06:36 Dose: 125 mls/hr Documented By: TIKA Ioversol (Optiray 320 100ml) 100 ml IV ONCE ONE Stop: 10/07/24 05:49 Last Admin: 10/07/24 05:48 Dose: 93 ml Documented By: SULMA Morphine Sulfate (Morphine Sulfate 4 Mg/Ml 1 Ml Carp\Vial) 4 mg IV NOW STA Stop: 10/07/24 04:29 Last Admin: 10/07/24 04:37 Dose: 4 mg Documented By: TIKA Morphine Sulfate (Morphine Sulfate 4 Mg/Ml 1 Ml Carp\Vial) 4 mg IV NOW STA Stop: 10/07/24 05:40 Last Admin: 10/07/24 05:51 Dose: 4 mg Documented By: TIKA Morphine Sulfate (Morphine Sulfate 4 Mg/Ml 1 Ml Carp\Vial) 4 mg IV NOW STA Stop: 10/07/24 08:23 Last Admin: 10/07/24 08:31 Dose: 4 mg Documented By: [facility] [place] Ondansetron HCl (Ondansetron Inj 2 Mg/Ml 2 Ml Vial) 4 mg IV NOW STA Stop: 10/07/24 04:29 Last Admin: 10/07/24 04:37 Dose: 4 mg Documented By: Imaging Data Radiologist's Impression: Abdomen/Pelvis CT 10/07/24 04:28 EXAM: CT abd pelvis IV con only CLINICAL HISTORY: eval for pancreatitis TECHNIQUE: Contiguous axial images were obtained from the level of the diaphragm to the pubic symphysis with intravenous contrast. Coronal and sagittal reconstructions were likewise performed and indicated to increase the sensitivity for detecting clinically relevant pathology. If IV contrast material had not been administered, the likelihood of detecting abnormalities relevant to the patient's condition would have been substantially decreased. CT scan was performed according to ALARA (as low as reasonable achievable). COMPARISON: 06/23/2024 11:58:39 AGRICULTURE TEACHER FINDINGS: The visualized lung bases are clear. The liver is normal in size and reduced attenuation. Tiny cyst noted involving segment V.. There is no intra or extrahepatic biliary ductal dilatation. Hepatic vasculature is patent. The gallbladder is present. The spleen, and adrenal glands are unremarkable. Pancreas appears mildly atrophied and shows dilated main pancreatic duct. Multiple parenchymal calcification with intraductal calculi are noted involving head and body of pancreas. Subtle fat stranding is noted involving peripancreatic region; predominantly adjacent to the head. The kidneys are normal in size and attenuation. There is no hydronephrosis or perinephric fat stranding. No renal calculi or renal masses are identified. The ureters are normal in caliber and no ureteral calculi are seen. The bladder is normal in contour. Pelvic viscera are unremarkable. No focal or diffuse bowel wall thickening or evidence of bowel obstruction is identified. The appendix is visualized in the right lower quadrant and appears within normal limits. Abdominal and pelvic vasculature is patent. No adenopathy or fluid collections are seen. No aggressive appearing osseous lesions are identified. IMPRESSION: 1. Pancreas appears mildly atrophied and shows dilated main pancreatic duct. Multiple parenchymal calcification with intraductal calculi are noted involving head and body of pancreas. Subtle fat stranding is noted involving peripancreatic region; predominantly adjacent to the head.- findings suggest possibility of acute on chronic pancreatitis. ( fat stranding is new interval finding, . Rest changes are same as prior) 2. Hepatic steatosis with small hepatic cyst.-stable. 3. No other new interval abnormality since prior study. Electronically signed by Andrea Chen 10-07-2024 06:19 AM Discharge Plan Visit Data Chief Complaint: Abdominal Pain Stated Complaint: PANCREATITIS? ED Provider: Lisy Sesay Discharge Problem: Pancreatitis Patient Disposition: Admitted As Inpatient Condition: Serious Discharge Instructions Interventions: ED Discharge Assessment Last Done: 10/07/24 09:14
[2024-10-07] MEDS: MoRPHine SULFATE 4 MG/ML 1 ML CARP\\VIAL IV STA ×3 (04:37→08:31)
[2024-10-07] MEDS: ONDANSETRON INJ 2 MG/ML 2 ML VIAL IV STA (04:37)
[2024-10-07 04:53] LABS: Hematocrit (blood only) 43.7 % (42.0-52.0); Hemoglobin 16.2 g/dl (14.0-18.0); Immature Granulocytes # (auto) 0.03 K/uL (0.01-0.20); Immature Granulocytes % (auto) 0.5 %; Mean Corpuscular Hemoglobin 33.8 pg (25.0-34.0); Mean Corpuscular Volume 91.2 fL (80.0-100.0); Platelet Count 179 K/uL (130-400); RDW Standard Deviation 37.7 fL (36.4-46.3); Red Blood Count 4.79 M/uL (4.70-6.10); White Blood Count 6.36 K/ul (4.8-10.8)
[2024-10-07 05:24] LABS: Alanine Aminotransferase 22 U/L (7-52); Albumin Globulin Ratio 1.3 (0.9-2); Alkaline Phosphatase 92 U/L (34-104); Anion Gap 9 (3-11); Bilirubin,Total 0.4 mg/dl (0.2-1.0); Blood Urea Nitrogen 10 mg/dl (6-23); Calcium 9.4 mg/dl (8.6-10.3); Carbon Dioxide 27 mmol/L (21-32); Chloride 98 mmol/L (98-107); Creatinine Clr Calc Pharmacy 122.7 ml/min; Globulin 3.2 gm/dl (2.5-4.0); Glucose 152 mg/dl (70-99(Fasting)); Lipase 137 U/L (11-82); Sodium 134 mmol/L (136-145); Total Protein 7.2 gm/dl (6.0-8.3)
[2024-10-07] MEDS: OPTIRAY 320 100ml IV ONE (05:48)
--- NOTE | 2024-10-07 06:19 | CT Scan Report ---
EXAM: CT abd pelvis IV con only CLINICAL HISTORY: eval for pancreatitis TECHNIQUE: Contiguous axial images were obtained from the level of the diaphragm to the pubic symphysis with intravenous contrast. Coronal and sagittal reconstructions were likewise performed and indicated to increase the sensitivity for detecting clinically relevant pathology. If IV contrast material had not been administered, the likelihood of detecting abnormalities relevant to the patient's condition would have been substantially decreased. CT scan was performed according to ALARA (as low as reasonable achievable). COMPARISON: 06/23/2024 11:58:39 BATCH ANALYST FINDINGS: The visualized lung bases are clear. The liver is normal in size and reduced attenuation. Tiny cyst noted involving segment V.. There is no intra or extrahepatic biliary ductal dilatation. Hepatic vasculature is patent. The gallbladder is present. The spleen, and adrenal glands are unremarkable. Pancreas appears mildly atrophied and shows dilated main pancreatic duct. Multiple parenchymal calcification with intraductal calculi are noted involving head and body of pancreas. Subtle fat stranding is noted involving peripancreatic region; predominantly adjacent to the head. The kidneys are normal in size and attenuation. There is no hydronephrosis or perinephric fat stranding. No renal calculi or renal masses are identified. The ureters are normal in caliber and no ureteral calculi are seen. The bladder is normal in contour. Pelvic viscera are unremarkable. No focal or diffuse bowel wall thickening or evidence of bowel obstruction is identified. The appendix is visualized in the right lower quadrant and appears within normal limits. Abdominal and pelvic vasculature is patent. No adenopathy or fluid collections are seen. No aggressive appearing osseous lesions are identified. IMPRESSION: 1. Pancreas appears mildly atrophied and shows dilated main pancreatic duct. Multiple parenchymal calcification with intraductal calculi are noted involving head and body of pancreas. Subtle fat stranding is noted involving peripancreatic region; predominantly adjacent to the head.- findings suggest possibility of acute on chronic pancreatitis. ( fat stranding is new interval finding, . Rest changes are same as prior) 2. Hepatic steatosis with small hepatic cyst.-stable. 3. No other new interval abnormality since prior study. Electronically signed by Andrea Chen 10-07-2024 06:19 AM
[2024-10-07] MEDS: SODIUM CHLORIDE 0.9% 500 ML IV SCH (06:36)
--- NOTE | 2024-10-07 07:16 | History & Physical Report ---
Date of Service October 07, 2024 Assessment & Plan (1) Pancreatitis: (2) Alcohol abuse: (3) Hypertension: Plan 54-year-old male presents with pancreatitis and persistent alcohol use. Patient has changes on imaging suggestive of chronic pancreatitis and fatty liver. Patient states last drink was almost 36 hours prior to admission. Emergency room physicians have not checked serum alcohol level #Pancreatitis. Patient kept NPO. IV lactated Ringer's. However parenteral morphine required for pain control. as needed antiemetics. #Alcohol abuse. Patient had no issues last admission with alcohol withdrawal symptoms. He will be given thiamine and will be on the RANDALL S at risk protocol Was discussion at last discharge with patient being on naltrexone this is unclear if this was actually filled out #Hypertension. Patient since he is n.p.o. of his oral medications minimize still have his p.o. metoprolol continue with backup clonidine and hydralazine #DVT prevention will be Lovenox therapy History of Present Illness Chief Complaint: 54-year-old male with previous history of pancreatitis and alcohol abuse who presents with abdominal pain. Patient diagnosed with pancreatitis in the emerg ency department. Patient required 8 mg of parenteral morphine his initial lipase is only mildly elevated. CT scan shows a atrophied pancreas with dilated main pancreatic duct multiple parenchymal calcifications and some subtle fat stranding. He has steatosis present previously identified mesenteric vein thrombosis is no longer seen Primary Care Provider: SYLVIA Urbina Allergies Allergy/AdvReac Type Severity Reaction Status Date / Time hydrocodone Allergy Verified 10/07/24 08:22 Home Medications Medication Instructions Recorded Confirmed Type thiamine HCl (vitamin B1) 100 mg 100 mg PO QDL 12/09/18 10/07/24 History tablet amlodipine 5 mg tablet 5 mg PO HS #90 tabs 05/19/24 10/07/24 Rx atorvastatin 20 mg tablet 20 mg PO QPM #90 tabs 05/20/24 10/07/24 Rx sildenafil 50 mg tablet 50 mg PO DAILY PRN sexual activity 05/23/24 10/07/24 Rx #20 tabs cyclobenzaprine 10 mg tablet 10 mg PO TID PRN muscle spasm #20 09/18/24 10/07/24 Rx tabs hydrochlorothiazide 25 mg tablet 25 mg PO QDL 10/07/24 10/07/24 History irbesartan 300 mg tablet 300 mg PO QDL 10/07/24 10/07/24 History metoprolol succinate 50 mg 50 mg PO QDL 10/07/24 10/07/24 History tablet,extended release 24 hr potassium citrate 99 mg capsule 99 mg PO QDL 10/07/24 10/07/24 History Past Med/Surg History Problem List Pancreatic cyst Obstructive sleep apnea syndrome Poorly-controlled hypertension Pancreatic ductal abnormality Resistant hypertension Pancreatitis (Acute) Mesenteric venous thrombosis (Acute) Alcohol abuse (Acute) Pancreatitis (2016) Cholelithiasis Fatty liver Chronic pancreatitis (Acute) Prediabetes Gout Erectile dysfunction Anxiety Left ventricular hypertrophy Hyperlipidemia Hypertension Medical History Abnormal EKG Hypertensive urgency Olecranon bursitis Contusion of bone Pain of both elbows Surgical History History of arthroscopy of knee Family History Denies family history of Ovarian cancer Prostate cancer Breast cancer Lung cancer Colorectal cancer Social History Smoking Status: Never smoker Tobacco Type: Smokeless Tobacco (Dip or Chew) Second Hand Exposure: No; Do You Dip or Chew Tobacco: Yes; Hx Alcohol Use: Yes Alcohol type: hard liquor Hx Substance Use: No Preferred Language: Serbian Communication Ability: Effective Visual Impairment: No Limitations Hearing Ability: Hard of Hearing Contact Center Professional Required: No Beliefs That Will Affect Care: None marital status: Single Current Living Situation: Significant Other 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 Vital signs as documented. Head exam is normocephalic atraumatic Neck is without JVD, thyromegaly, or carotid bruits. Lungs are clear to auscultation, no focal loss of breath sounds Cardiac exam, Rhythm is regular.. No murmurs, rubs or gallops. Abdominal exam reveals normal bowel sounds, soft diffusely tender, mostly epigastric, some RUQ, no masses, no rebound no guarding Extremities are nonedematous and both pedal pulses are present Neurologic exam is alert and oriented, no focal loss of strength or sensation Skin is without bruises or rashes, anicteric Psychologically is without concerns for anxiety or depression.. Results & Data Results & Data Vital Signs (Past 12 Hours) Vital Signs Temp Pulse Resp BP Pulse Ox O2 Del Method 10/07/24 06:39 72 12 158/84 H 98 Room Air 10/07/24 06:00 68 15 130/76 97 10/07/24 05:54 78 19 169/102 H 99 10/07/24 05:20 70 10/07/24 04:18 Room Air 10/07/24 04:11 97.7 F 78 18 162/101 H 98 Room Air Laboratory Results Reviewed CBC chemistry liver function test and CAT scan of the abdomen pelvis Discussed case in signout from nocturnal hospitalist Code Status & VTE Plan VTE Prophylaxis Plan VTE Prophylaxis will be ordered: Yes PG Care Time/CCT Total # of Minutes Spent Total Time Spent with Patient: Total time spent is greater than 50% in coordination of care (as documented) at patient's floor/unit and/or counseling patient: Coding Level of Care Code 82976 INT INP/OBS CARE 3/75MIN Diagnoses Pancreatitis K85.20 Acute pancreatitis complication: unspecified Chronicity: acute Pancreatitis type: alcohol induced Alcohol abuse F10.10 Hypertension I10 (1) Pancreatitis Acute pancreatitis complication: unspecified Chronicity: acute Pancreatitis type: alcohol induced Qualified Code(s): K85.20 - Alcohol induced acute pancreatitis without necrosis or infection
[2024-10-07 08:04] LABS: Potassium 3.9 mmol/L (3.5-5.1)
[2024-10-07 08:27] LABS: Appearance Urine Clear (Clear); Glucose Urine UA Negative (Negative)
[2024-10-07] MEDS ORDERED: LORazepam 1 MG TAB PO PRN (09:14)
[2024-10-07 09:46] LABS: Lipase 218.0 U/L (11-82)
[2024-10-07] MEDS: THIAMINE HCL 100 MG TAB PO SCH (10:00)
[2024-10-07] MEDS: METOPROLOL SUCC 50MG EXT REL TAB PO SCH (10:00)
[2024-10-07] MEDS: LACTATED RINGER'S 1,000 ML IV SCH (10:01)
[2024-10-07] MEDS: ENOXAPARIN INJ 40 MG/0.4 ML SYR SQ SCH (10:04)
[2024-10-07] MEDS: MoRPHine SULFATE 4 MG/ML 1 ML CARP\\VIAL IV PRN (14:21)
[2024-10-07] MEDS: MoRPHine SULFATE 2 MG/ML CARP IV PRN (20:56)
--- NOTE | 2024-10-07 23:35 | Electrocardiogram Report ---
Test Reason : Blood Pressure : */* mmHG Vent. Rate : 74 BPM Atrial Rate : 74 BPM P-R Int : 164 ms QRS Dur : 86 ms QT Int : 398 ms P-R-T Axes : 57 -40 3 degrees QTcB Int : 441 ms Normal sinus rhythm Left axis deviation Inferior infarct , age undetermined Anterior infarct (cited on or before 14-Sep-2023) Abnormal ECG When compared with ECG of 23-Dec-2023 12:22, No significant change was found Confirmed by Drew Ledezma ([id number]) on 10/07/2024 11:35:35 PM Referred By: REFERRED SELF Confirmed By: Drew Ledezma
[2024-10-08] MEDS ORDERED: MELATONIN 3 MG TAB PO PRN (05:59)
[2024-10-08 06:42] LABS: Hematocrit (blood only) 39.8 % (42.0-52.0); Hemoglobin 14.0 g/dl (14.0-18.0); Mean Corpuscular Hemoglobin 33.4 pg (25.0-34.0); Mean Corpuscular Volume 95.0 fL (80.0-100.0); Platelet Count 135 K/uL (130-400); RDW Standard Deviation 39.1 fL (36.4-46.3); Red Blood Count 4.19 M/uL (4.70-6.10); White Blood Count 5.59 K/ul (4.8-10.8)
[2024-10-08 07:10] LABS: Anion Gap 4.0 (3-11); Blood Urea Nitrogen 8.0 mg/dl (6-23); Calcium 9.0 mg/dl (8.6-10.3); Carbon Dioxide 34.0 mmol/L (21-32); Chloride 100.0 mmol/L (98-107); Creatinine Clr Calc Pharmacy 126.1 ml/min; Glucose 127.0 mg/dl (70-99(Fasting)); Lipase 449.0 U/L (11-82); Potassium 4.0 mmol/L (3.5-5.1); Sodium 138.0 mmol/L (136-145)
--- NOTE | 2024-10-08 07:54 | Hospitalist Progress Note ---
Date of Service October 08, 2024 Assessment & Plan (1) Pancreatitis: (2) Alcohol abuse: (3) Hypertension: Plan 54-year-old male presents with pancreatitis and persistent alcohol use. Patient has changes on imaging suggestive of chronic pancreatitis and fatty liver. Patient states last drink was almost 36 hours prior to admission. Emergency room physicians have not checked serum alcohol level #Pancreatitis. Patient is parenteral opiates have been changed to hydromorphone for better pain control continues on intravenous lactated Ringer's remains n.p.o. except for sips and chips. #Alcohol abuse. Patient had no issues last admission with alcohol withdrawal symptoms. Continues thiamine and will be on the RANDALL S at risk protocol However is not need any medications. was discussion at last discharge with patient being on naltrexone this is unclear if this was actually filled out #Hypertension. Patient since he is n.p.o. of his oral medications minimize still have his p.o. metoprolol continue with backup clonidine and hydralazine #DVT prevention will be Lovenox therapy Admission and Anticipated Discharge Date Admission Date: October 07, 2024 Subjective Patient has persistent pain feeling morphine is not helping. Did have moderate elevation of his lipase today. Is fine not eating food only drinking occasional sips of water Physical Exam Physical Exam: Pleasant gentleman in mild-moderate distress mostly left-sided abdominal pain. Card exam is regular lungs are clear abdomen is reproducible pain on the left side no rebound no guarding Results & Data Results & Data Vital Signs (Past 12 Hours) Vital Signs Temp Pulse Resp BP Pulse Ox O2 Del Method 10/08/24 00:13 98.6 F 63 20 156/84 H 98 Room Air 10/07/24 21:11 Room Air Laboratory Results Is reviewed CBC reviewed chemistry showing lipase elevated to 400 from the 200s PG Care Time/CCT Total # of Minutes Spent Total Time Spent with Patient: Total time spent is greater than 50% in coordination of care (as documented) at patient's floor/unit and/or counseling patient: Coding Level of Care Code 24427 SUB INP/OBS CARE 2/35MIN Diagnoses Pancreatitis K85.20 Acute pancreatitis complication: unspecified Chronicity: acute Pancreatitis type: alcohol induced Alcohol abuse F10.10 Hypertension I10 (1) Pancreatitis Acute pancreatitis complication: unspecified Chronicity: acute Pancreatitis type: alcohol induced Qualified Code(s): K85.20 - Alcohol induced acute pancreatitis without necrosis or infection
[2024-10-08] MEDS: LOSARTAN POTASSIUM 50 MG TAB PO SCH (12:10)
[2024-10-08] MEDS ORDERED: HYDROmorphone INJ 0.5 MG/0.5 ML SYR IV PRN (12:39)
[2024-10-08] MEDS: LACTATED RINGER'S 1,000 ML IV SCH (13:08)
[2024-10-08] MEDS: HYDROmorphone INJ 1 MG/ML SYRINGE IV STA (13:15)
[2024-10-08] MEDS: HYDROmorphone INJ 1 MG/ML SYRINGE IV PRN (18:56)
[2024-10-09 07:42] VITALS: BP 145/94; PULSE 82; RESP 18; TEMP 99.7; O2SAT 95
--- NOTE | 2024-10-09 17:43 | Discharge Summary ---
Discharge Summary Date of Service October 09, 2024 Principal Dx & Hospital Course #1 = Principal Diagnosis (1) Pancreatitis: (2) Alcohol abuse: (3) Hypertension: Plan 54-year-old male presents with pancreatitis and persistent alcohol use. Patient has changes on imaging suggestive of chronic pancreatitis and fatty liver. Patient states last drink was almost 36 hours prior to admission. Emergency room physicians have not checked serum alcohol level #Pancreatitis. Patient states that his pain is greatly improved. We did discuss the fact that his lipase went up slightly. He has having ice chips sips and oral medications. We discussed the fact that if his lipase was associated with pain I would likely pursue an ultrasound to look for a pancreatic pseudocyst however the patient was not interested in staying any longer in our facility. I do not prescribe any pain medicine for home I did educate him on a bland diet and the fact that he should return immediately if he has any fevers chills abdominal pain or profuse diarrhea. #Alcohol abuse. Patient had no issues this admission with alcohol withdrawal symptoms. Patient educated on not drinking any alcohol of any kind #Hypertension. Resume amlodipine metoprolol and ARB I do some concerns about chronic pancreatitis in this patient and asked him to discuss pancreatic enzymes with his outpatient provider and as mentioned with mild elevation of his lipase encouraged him to return immediately if he has any decline in physical function Notes For Next Care Provider Reps referral to specialist for chronic pancreatitis could be considered Continue surveillance for alcohol abuse with referral to AA or inpatient counseling if open to it Discharge Exam Pleasant gentleman claims of no distress examination of his abdomen including deep palpation was without signs or symptoms of pain Discharge Plan Discharge Items Patient Disposition: Home - Self-Care Reason For Visit: PANCREATITIS Discharge Diagnosis: acute on chronic pancreatitis Condition on Discharge: Serious Activity: Resume your previous activity Non-emergency contact: Primary Care Provider Call non-emergency contact if: your symptoms worsen Follow-up/Referrals: Dajuan Mak CRNP [Primary Care Provider] - 10/16/24 11:00 am Diet: Other - See Diet Comment Diet Comment: please eat a bland diet and refrain from any alcohol intake Addtl Attending Provider Instructions: Pancreatitis: Care Instructions Overview The pancreas is an organ behind the stomach. It makes hormones and enzymes to help your body digest food. But if these enzymes attack the pancreas, it can get inflamed. This is called pancreatitis. Most cases are caused by gallstones or by heavy alcohol use. If you take care of yourself at home, it will help you get better. It will also help you avoid more problems with your pancreas. How can you care for yourself at home? Drink clear liquids and eat bland foods until you feel better. Homer foods include rice, dry toast, and crackers. They also include bananas and ap plesauce.Eat a low-fat diet until your doctor says your pancreas is healed.Do not drink alcohol. Tell your doctor if you need help to quit. Counselling, support groups, and sometimes medicines can help you stay sober. you can take an zxfy-kfg-[id number] medicine To prevent future problems with your pancreas Do not drink alcohol.Tell your doctors and pharmacist that you've had pancreatitis. They can help you avoid medicines that may cause this problem again. Pending Studies at Discharge: No Stand-Alone Forms: My [facility], Smoking Cessation Medications and DC Order Prescriptions: Continued sildenafil 50 mg tablet 50 mg PO DAILY PRN (Reason: sexual activity) Qty: 20 3RF Rx Instructions: administer 30 minutes to 4 hours before activity thiamine HCl (vitamin B1) 100 mg tablet 100 mg PO QDL amlodipine 5 mg tablet 5 mg PO HS Qty: 90 3RF atorvastatin 20 mg tablet 20 mg PO QPM Qty: 90 2RF cyclobenzaprine 10 mg tablet 10 mg PO TID PRN (Reason: muscle spasm) Qty: 20 0RF potassium citrate 99 mg Capsule 99 mg PO QDL metoprolol succinate 50 mg tablet extended release 24 hr 50 mg PO QDL hydrochlorothiazide 25 mg tablet 25 mg PO QDL irbesartan 300 mg tablet 300 mg PO QDL Discharge Orders: Discharge Order (Routine); Ordered 10/09/24 Ordered By: Agustin Mariano/Other Patient Handouts: Pancreatic Pseudocysts, Understanding Pancreatitis, Pancreatitis Acute Dc Admission Data Admit Date/Time: 10/07/24 07:11 Attending Provider: Agustin Clemons Admit Provider: Agustin Clemons Primary Care Provider: Dajuan Mak Other Providers: Agustin Clemons Other Interventions: Discharge Summary Assessment (RN) Last Done: 10/09/24 11:27 Hospital Stay Data Consultations 10/07/24 06:45 ED Decision to Admit Stat Diagnostic Imagining Performed 10/07/24 04:28 CT Abd and Pelvis [CT abd pelvis IV con only] Stat Pending Results Patient Have Any Pending Studies at Discharge: No Discharge Instructions Given to Patient (Per Discharging Provider) Pancreatitis: Care Instructions Overview The pancreas is an organ behind the stomach. It makes hormones and enzymes to help your body digest food. But if these enzymes attack the pancreas, it can get inflamed. This is called pancreatitis. Most cases are caused by gallstones or by heavy alcohol use. If you take care of yourself at home, it will help you get better. It will also help you avoid more problems with your pancreas. How can you care for yourself at home? Drink clear liquids and eat bland foods until you feel better. [place] foods include rice, dry toast, and crackers. They also include bananas and applesauce.Eat a low-fat diet until your doctor says your pancreas is healed.Do not drink alcohol. Tell your doctor if you need help to quit. Counselling, support groups, and sometimes medicines can help you stay sober. you can take an odkm-unp-gtmdyms medicine To prevent future problems with your pancreas Do not drink alcohol.Tell your doctors and pharmacist that you've had pancreatitis. They can help you avoid medicines that may cause this problem again. Total Time Total Time Spent Total Time Spent (In Minutes): It required greater than 30 minutes to prepare this patient for discharge. Coding Level of Care Code 59441 INP/OBS DISCH >30 MIN Diagnoses Pancreatitis K85.20 Acute pancreatitis complication: unspecified Chronicity: acute Pancreatitis type: alcohol induced Alcohol abuse F10.10 Hypertension I10
== END 2024-10-09 12:54 | disposition home or self-care (01) | DRG 440 ==
LOC: SUATTDRO → ED 04:08 → EDINP 07:11 → 2N 16:35 → 3N 10-08 20:04